=== PATIENT | male | born 1955 | race Caucasian/White ===

== ENCOUNTER → 2016-12-11 | Outpatient (CLI) | payer OTHER ==
[~2016-12-11] MED LIST: CARI-277 OR; DICL-37 OR; DICL75TA2 OR; GABA300C8 OR; LISI-275 OR; METF500T OR; SIMV-13 OR; TADA20TA OR
== END ==
LOC: RT 19:33
PROVIDERS: ATTEND Internal Medicine Pulmonary Disease
DX: G47.9 Sleep disorder, unspecified (principal)

== ENCOUNTER → 2017-01-03 | Outpatient (CLI) | payer OTHER ==
[~2017-01-03] MED LIST changes: +ALBUTEROL SULF 2.5 MG/0.5ML(0.5%) NEB SOLN ONE
[2017-01-03 09:50] LABS: Allen Test Yes; Base Excess 1.6 mmol/L (-2.0-2.0); Blood 02Sat 86.6 % (96-100); Blood COHb 0.3 % (0.5-1.5); Blood MetHb 0.2 % (0.0-1.5); HCO3 27.3 mmol/L (22-26.0); HHb 13.3 % (0.0-5.0); MODE ROOM AIR; O2Hb 86.2 % (94.0-97.0); PCO2(T) 45.7 mmHg (35.0-45.0); Sample Type Arterial
== END | disposition home or self-care (01) ==
LOC: RT 08:55
PROVIDERS: ATTEND Internal Medicine Pulmonary Disease
DX: J44.9 Chronic obstructive pulmonary disease, unspecified (principal)
CPT/HCPCS: 36600; 82805; 94060; 94640

== ENCOUNTER 2017-03-16 22:37 | Emergency (ER) | payer OTHER ==
[~2017-03-16] VITALS: Ht 182.9 cm; Wt 117.9 kg
[~2017-03-16 22:37] MED LIST changes: -ALBUTEROL SULF 2.5 MG/0.5ML(0.5%) NEB SOLN ONE; +GABA-497 OR; -GABA300C8 OR
[2017-03-16 23:43] LABS: Basophils # (auto) 0.1 uL; Basophils % (auto) 1.5 % (0.0-2.0); Eosinophils # (auto) 0.2 uL; Eosinophils % (auto) 2.7 % (0.0-7.0); Hematocrit 50.6 % (41.0-53.0); Hemoglobin 16.5 g/dL (13.5-17.5); Lymphocytes # (auto) 1.4 uL; Lymphocytes % (auto) 21.5 % (10.0-50.0); Mean Corpuscular Hemoglobin 31.8 pg (28.0-32.0); Mean Corpuscular Hgb Conc. 32.5 g/dL (32.0-36.0); Mean Corpuscular Volume 97.7 fL (80.0-100.0); Mean Platelet Volume 7.6 fL (7.4-10.4); Monocytes # (auto) 0.7 uL; Monocytes % (auto) 10.8 % (0.0-12.0); Neutrophils # (auto) 3.9 uL; Neutrophils % (auto) 63.5 % (37.0-80.0); Platelet Count (auto) 238 10^3/uL (140-450); Red Cell Distribution Width 14.5 % (11.6-16.0); SUSPECT SEE PRINTOUT; White Blood Cell 6.3 10^3/uL (4.4-10.8)
[2017-03-17 00:06] LABS: Albumin 2.7 g/dL (3.4-5.0); BUN/Creatinine Ratio 18.1; Calcium 8.6 mg/dL (8.5-10.1); Potassium 4.6 mmol/L (3.5-5.1)
[2017-03-17 00:08] LABS: Bilirubin, Total 0.4 mg/dL (0.2-1.0); Total Protein 6.9 g/dL (6.4-8.2)
[2017-03-17] MEDS ORDERED: KETOROLAC TROMETH 60MG/2ML VIAL IM ONE (03:15)
[2017-03-17] MEDS ORDERED: HYDROcodone-ACET 10/325MG TAB PO ONE (03:30)
[2017-03-17 03:57] LABS: INR 1.59 (0.9-1.15)
[2017-03-17 04:23] LABS: Prothrombin Time 17.4 sec (9.37-12.3)
[2017-03-17 07:44] VITALS: BP 153/115
== END 2017-03-17 08:25 | disposition home or self-care (01) ==
LOC: EDBD 22:37 → ER 22:37
DX: S80.12XA Contusion of left lower leg, initial encounter (principal); I73.9 Peripheral vascular disease, unspecified; I11.0 Hypertensive heart disease with heart failure; I50.9 Heart failure, unspecified; J44.9 Chronic obstructive pulmonary disease, unspecified; E11.9 Type 2 diabetes mellitus without complications; Z79.899 Other long term (current) drug therapy; W01.0XXA Fall on same level from slipping, tripping and stumbling without subsequent striking against object, initial encounter; Y93.89 Activity, other specified; Y99.8 Other external cause status; Y92.89 Other specified places as the place of occurrence of the external cause
CPT/HCPCS: 36415; 73590; 80053; 85025; 85610; 85730; 93970

== ENCOUNTER → 2017-05-09 | Outpatient (CLI) | payer OTHER | END | disposition home or self-care (01) | LOC: LAB 15:16 | PROVIDERS: ATTEND Family Medicine | DX: R19.5 Other fecal abnormalities (principal) | CPT/HCPCS: 82270 ==

== ENCOUNTER → 2017-08-02 | Outpatient (CLI) | payer OTHER ==
[~2017-08-02] MED LIST changes: -GABA-497 OR; +GABA300C10 OR
== END | disposition home or self-care (01) ==
LOC: XYW 08:14
PROVIDERS: ATTEND Internal Medicine Pulmonary Disease
DX: J96.11 Chronic respiratory failure with hypoxia (principal); I26.99 Other pulmonary embolism without acute cor pulmonale; I10 Essential (primary) hypertension
CPT/HCPCS: 93306

== ENCOUNTER → 2018-05-14 | Outpatient (CLI) | payer OTHER ==
[~2018-05-14] MED LIST changes: +FURO20TA3 PO; +GLIP-115 PO; +POTA10TA51 PO; +WARF1TAB PO
[2018-05-14 12:48] LABS: Basophils # (auto) 0 uL; Basophils % (auto) 0.6 % (0.0-2.0); Eosinophils # (auto) 0.1 uL; Eosinophils % (auto) 1.7 % (0.0-7.0); Hemoglobin 18.3 g/dL (13.5-17.5); Lymphocytes # (auto) 1.1 uL; Lymphocytes % (auto) 14.9 % (10.0-50.0); Mean Corpuscular Hemoglobin 32.5 pg (28.0-32.0); Mean Corpuscular Hgb Conc. 32.1 g/dL (32.0-36.0); Mean Corpuscular Volume 101.2 fL (80.0-100.0); Monocytes # (auto) 0.5 uL; Monocytes % (auto) 7.2 % (0.0-12.0); Neutrophils # (auto) 5.4 uL; Neutrophils % (auto) 75.6 % (37.0-80.0); Platelet Count (auto) 208 10^3/uL (140-450); Red Blood Cells 5.65 10^6/uL (4.5-5.90); Red Cell Distribution Width 16.4 % (11.8-14.3); White Blood Cell 7.1 10^3/uL (4.4-10.8)
[2018-05-14 12:49] LABS: Hematocrit 57.1 % (41.0-53.0)
[2018-05-14 12:54] LABS: Urine Bacteria NONE SEEN /hpf (None Seen); Urine Blood TRACE /uL (Negative); Urine Specific Gravity 1.016 (1.001-1.035); Urine WBC <1 /hpf (0 - 3)
[2018-05-14 14:03] LABS: Albumin 2.9 g/dL (3.4-5.0); Bilirubin, Total 0.6 mg/dL (0.2-1.0); Calcium 8.9 mg/dL (8.5-10.1); Potassium 5.3 mmol/L (3.5-5.1); Total Protein 7.5 g/dL (6.4-8.2)
[2018-05-14 14:15] LABS: BUN/Creatinine Ratio 18.2
== END | disposition home or self-care (01) ==
LOC: LAB 11:24
PROVIDERS: ATTEND Nurse Practitioner
DX: E78.5 Hyperlipidemia, unspecified (principal); E55.9 Vitamin D deficiency, unspecified; J44.9 Chronic obstructive pulmonary disease, unspecified; F41.9 Anxiety disorder, unspecified
CPT/HCPCS: 36415; 80053; 80061; 81001; 82306; 83036; 84153; 84443; 85025

== ENCOUNTER 2018-05-15 12:47 | Inpatient (IN) | payer OTHER ==
[~2018-05-15] VITALS: Ht 180.3 cm; Wt 106.6 kg
[2018-05-15] VITALS (8 sets, daily range): BP systolic 109–151; BP diastolic 71–111
[~2018-05-15 12:47] MED LIST changes: -FURO20TA3 PO; -GLIP-115 PO; -POTA10TA51 PO; -WARF1TAB PO
[2018-05-15 13:25] LABS: Basophils # (auto) 0 uL; Eosinophils # (auto) 0.1 uL; Lymphocytes # (auto) 0.9 uL; Lymphocytes % (auto) 13.4 % (10.0-50.0); Monocytes # (auto) 0.5 uL
[2018-05-15 13:27] LABS: Basophils % (auto) 0.3 % (0.0-2.0); Eosinophils % (auto) 1.9 % (0.0-7.0); Hematocrit 55.5 % (41.0-53.0); Mean Corpuscular Hemoglobin 32.8 pg (28.0-32.0); Mean Corpuscular Hgb Conc. 32.5 g/dL (32.0-36.0); Mean Corpuscular Volume 100.7 fL (80.0-100.0); Monocytes % (auto) 7.5 % (0.0-12.0); Neutrophils # (auto) 5.3 uL; Neutrophils % (auto) 76.9 % (37.0-80.0); Platelet Count (auto) 189 10^3/uL (140-450); Red Blood Cells 5.51 10^6/uL (4.5-5.90); Red Cell Distribution Width 16.1 % (11.8-14.3); White Blood Cell 6.8 10^3/uL (4.4-10.8)
[2018-05-15] MEDS ORDERED: GLIP-115 PO (13:28)
[2018-05-15] MEDS ORDERED: POTA10TA51 PO (13:28)
[2018-05-15] MEDS ORDERED: WARF1TAB PO (13:28)
[2018-05-15] MEDS ORDERED: FURO20TA3 PO (13:28)
[2018-05-15 13:43] LABS: INR 1.92 (0.9-1.15); Partial Thromboplastin Time 33.5 sec (23.78-33.04); Prothrombin Time 19.8 sec (9.27-12.13)
[2018-05-15 14:06] LABS: Albumin 2.5 g/dL (3.4-5.0); BUN/Creatinine Ratio 13.8; Bilirubin, Total 0.7 mg/dL (0.2-1.0); Calcium 8.5 mg/dL (8.5-10.1); Potassium 5.1 mmol/L (3.5-5.1)
[2018-05-15] MEDS ORDERED: ETOMIDATE (2MG/ML) 20ML VIAL IV ONE ×2 (14:17→14:45)
[2018-05-15] MEDS ORDERED: SUCCINYLCHOLINE CHLORIDE 20 MG/ML 10ML VIAL IV ONE ×2 (14:18→14:45)
[2018-05-15] MEDS ORDERED: PROPOFOL 100 ML IV ONE (14:25)
[2018-05-15 14:31] LABS: Lactic Acid w/Reflex 2.1 mmol/L (0.4-2.0)
[2018-05-15] MEDS ORDERED: PROPOFOL 100 ML IV SCH (14:35)
[2018-05-15] MEDS ORDERED: MIDAZOLAM DRIP 50 mg/50mL 50 ML IV SCH (15:08)
[2018-05-15] MEDS ORDERED: NOREPINEPHRINE 8 MG/250ML KIT 250 ML IV ONE (15:27)
[2018-05-15] MEDS ORDERED: NOREPINEPHRINE 8 MG/250ML KIT 250 ML IV SCH (15:35)
[2018-05-15] MEDS ORDERED: cefTRIAXone 1GM/10ml IVPUSH 10 ML IV ONE (16:00)
[2018-05-15] MEDS ORDERED: NITROGLYCERIN 0.4 MG SL TAB SL PRN (16:00)
[2018-05-15] MEDS ORDERED: SODIUM CHLORIDE 0.9% 250 ML IV ONE ×2 (16:00)
[2018-05-15] MEDS ORDERED: DEXTROSE (50%) 50ML SYRG IV PRN (16:00)
[2018-05-15] MEDS ORDERED: MORPHINE SULFATE 4 MG/ML SYR/VIAL IV PRN (16:00)
[2018-05-15] MEDS ORDERED: AZITHROMYCIN 500MG/ 250ML 250 ML IV ONE (16:00)
[2018-05-15] MEDS: NOREPINEPHRINE 8 MG/250ML KIT 250 ML IV SCH (16:06)
[2018-05-15] MEDS: PROPOFOL 100 ML IV SCH ×3 (16:32→23:30)
[2018-05-15] MEDS: fentaNYL Drip 2500mCg/250mlNS 250 ML IV SCH (16:32)
[2018-05-15] MEDS: MIDAZOLAM DRIP 50 mg/50mL 50 ML IV SCH ×2 (16:32→22:15)
[2018-05-15] MEDS: InsuLIN REG 1unit/0.01ml Soln (100units/ml) SC SCH (17:43)
[2018-05-15] MEDS: ACCU-CHEK COMFORT CURVE STRIP VI SCH (17:43)
[2018-05-15] MEDS: IPRATROPIUM BROM 0.5 MG/2.5ML INH SOL NEB SCH (18:10)
[2018-05-15] MEDS: ALBUTEROL SULF 2.5 MG/0.5ML(0.5%) NEB SOLN NEB SCH (18:10)
[2018-05-15] MEDS: ENOXAPARIN SOD 150 MG/1 ML SYRINGE SC SCH (22:00)
[2018-05-16] VITALS (70 sets, daily range): BP systolic 89–151; BP diastolic 56–105
[2018-05-16] MEDS: IPRATROPIUM BROM 0.5 MG/2.5ML INH SOL NEB SCH ×4 (00:08→19:23)
[2018-05-16] MEDS: ALBUTEROL SULF 2.5 MG/0.5ML(0.5%) NEB SOLN NEB SCH ×4 (00:08→19:24)
[2018-05-16] MEDS: MIDAZOLAM DRIP 50 mg/50mL 50 ML IV SCH ×4 (01:19→20:48)
[2018-05-16 04:06] LABS: Eosinophils # (auto) 0.2 uL; Monocytes # (auto) 0.8 uL; Nucleated Red Blood Cells % 0.1 %
[2018-05-16 04:09] LABS: Basophils # (auto) 0.1 uL; Basophils % (auto) 0.8 % (0.0-2.0); Eosinophils % (auto) 1.9 % (0.0-7.0); Hematocrit 54.1 % (41.0-53.0); Hemoglobin 17.5 g/dL (13.5-17.5); Lymphocytes # (auto) 1.6 uL; Lymphocytes % (auto) 18.6 % (10.0-50.0); Mean Corpuscular Hemoglobin 32.3 pg (28.0-32.0); Mean Corpuscular Hgb Conc. 32.4 g/dL (32.0-36.0); Mean Corpuscular Volume 99.8 fL (80.0-100.0); Monocytes % (auto) 9.9 % (0.0-12.0); Neutrophils # (auto) 5.8 uL; Neutrophils % (auto) 68.8 % (37.0-80.0); Platelet Count (auto) 208 10^3/uL (140-450); Red Blood Cells 5.42 10^6/uL (4.5-5.90); Red Cell Distribution Width 15.4 % (11.8-14.3); White Blood Cell 8.5 10^3/uL (4.4-10.8)
[2018-05-16 04:28] LABS: Albumin 2.3 g/dL (3.4-5.0); Calcium 8.3 mg/dL (8.5-10.1); Potassium 4.8 mmol/L (3.5-5.1)
[2018-05-16 04:30] LABS: BUN/Creatinine Ratio 15.2
[2018-05-16 04:33] LABS: Bilirubin, Total 0.9 mg/dL (0.2-1.0); Total Protein 6.2 g/dL (6.4-8.2)
[2018-05-16] MEDS: NOREPINEPHRINE 8 MG/250ML KIT 250 ML IV SCH (06:03)
[2018-05-16] MEDS: ACCU-CHEK COMFORT CURVE STRIP VI SCH ×4 (06:03→18:34)
[2018-05-16] MEDS: InsuLIN REG 1unit/0.01ml Soln (100units/ml) SC SCH ×4 (06:04→18:34)
[2018-05-16 08:30] LABS: Urine Bacteria FEW /hpf (None Seen); Urine Blood 2+ /uL (Negative); Urine Hyaline Cast FEW /lpf (0 - 2); Urine Mucus FEW (None Seen); Urine Specific Gravity 1.013 (1.001-1.035); Urine WBC 44 /hpf (0 - 3)
[2018-05-16] MEDS ORDERED: OPTISON 3ml Vial for INJ IV ONE (09:21)
[2018-05-16] MEDS: cefTRIAXone 1GM/10ml IVPUSH 10 ML IV SCH (10:14)
[2018-05-16] MEDS: AZITHROMYCIN 500MG/ 250ML 250 ML IV SCH (10:14)
[2018-05-16] MEDS: ENOXAPARIN SOD 150 MG/1 ML SYRINGE SC SCH ×2 (10:14→22:34)
[2018-05-16] MEDS: PANTOPRAZOLE 40 MG/10 ML VIAL IV SCH (10:15)
[2018-05-16 13:59] LABS: Alcohol, Urine < 3.0 mg/dL (0-5); Amphetamine Screen, Urine NEGATIVE (NEGATIVE); Barbiturate Scree,Urine NEGATIVE (NEGATIVE); Benzodiazephine Screen, Urine POSITIVE (NEGATIVE); Cannabinoid Screen, Urine NEGATIVE (NEGATIVE); Cocaine Screen, Urine NEGATIVE (NEGATIVE); Opiate Scree,Urine NEGATIVE (NEGATIVE); Phencyclidine Screen, Urine NEGATIVE (NEGATIVE)
[2018-05-16] MEDS: PROPOFOL 100 ML IV SCH ×2 (15:35→23:05)
[2018-05-16] MEDS: fentaNYL Drip 2500mCg/250mlNS 250 ML IV SCH (16:00)
[2018-05-17] VITALS (60 sets, daily range): BP systolic 63–133; BP diastolic 58–95
[2018-05-17] MEDS: MIDAZOLAM DRIP 50 mg/50mL 50 ML IV SCH ×3 (00:13→22:27)
[2018-05-17] MEDS: ACCU-CHEK COMFORT CURVE STRIP VI SCH ×4 (00:13→18:29)
[2018-05-17] MEDS: IPRATROPIUM BROM 0.5 MG/2.5ML INH SOL NEB SCH ×5 (00:19→23:57)
[2018-05-17] MEDS: ALBUTEROL SULF 2.5 MG/0.5ML(0.5%) NEB SOLN NEB SCH ×5 (00:19→23:56)
[2018-05-17 04:05] LABS: Basophils # (auto) 0 uL; Basophils % (auto) 0.5 % (0.0-2.0); Eosinophils # (auto) 0.1 uL; Eosinophils % (auto) 1.9 % (0.0-7.0); Hemoglobin 17.4 g/dL (13.5-17.5); Lymphocytes % (auto) 13.3 % (10.0-50.0); Mean Corpuscular Hemoglobin 33.1 pg (28.0-32.0); Mean Corpuscular Hgb Conc. 33.4 g/dL (32.0-36.0); Mean Corpuscular Volume 99.2 fL (80.0-100.0); Monocytes # (auto) 0.9 uL; Monocytes % (auto) 11.2 % (0.0-12.0); Neutrophils # (auto) 5.6 uL; Neutrophils % (auto) 73.1 % (37.0-80.0); Platelet Count (auto) 178 10^3/uL (140-450); Red Blood Cells 5.24 10^6/uL (4.5-5.90); Red Cell Distribution Width 15.8 % (11.8-14.3); White Blood Cell 7.7 10^3/uL (4.4-10.8)
[2018-05-17 04:21] LABS: Calcium 8.8 mg/dL (8.5-10.1); Potassium 4.6 mmol/L (3.5-5.1)
[2018-05-17] MEDS: PROPOFOL 100 ML IV SCH ×2 (05:44→13:48)
[2018-05-17] MEDS: InsuLIN REG 1unit/0.01ml Soln (100units/ml) SC SCH ×4 (05:57→18:00)
[2018-05-17] MEDS: cefTRIAXone 1GM/10ml IVPUSH 10 ML IV SCH (09:45)
[2018-05-17] MEDS: ENOXAPARIN SOD 150 MG/1 ML SYRINGE SC SCH ×2 (10:01→22:27)
[2018-05-17] MEDS: PANTOPRAZOLE 40 MG/10 ML VIAL IV SCH (10:01)
[2018-05-17] MEDS: AZITHROMYCIN 500MG/ 250ML 250 ML IV SCH (10:01)
[2018-05-17] MEDS ORDERED: POTASSIUM EFFERVESENT TAB 25 MEQ GT ONE (11:00)
[2018-05-17] MEDS ORDERED: FUROSEMIDE 40 MG/4 ML VIAL IV ONE (11:00)
[2018-05-17] MEDS: NOREPINEPHRINE 8 MG/250ML KIT 250 ML IV SCH (12:51)
[2018-05-17] MEDS: fentaNYL Drip 2500mCg/250mlNS 250 ML IV SCH (12:51)
[2018-05-18] VITALS (106 sets, daily range): BP systolic 90–146; BP diastolic 60–107
[2018-05-18] MEDS: InsuLIN REG 1unit/0.01ml Soln (100units/ml) SC SCH ×4 (00:22→18:00)
[2018-05-18] MEDS: ACCU-CHEK COMFORT CURVE STRIP VI SCH ×4 (00:22→18:06)
[2018-05-18] MEDS: PROPOFOL 100 ML IV SCH ×5 (03:49→19:52)
[2018-05-18 04:44] LABS: Calcium 8.6 mg/dL (8.5-10.1); Magnesium 2.3 mg/dL (1.6-2.6); Potassium 4.5 mmol/L (3.5-5.1)
[2018-05-18] MEDS: ALBUTEROL SULF 2.5 MG/0.5ML(0.5%) NEB SOLN NEB SCH ×3 (05:41→19:35)
[2018-05-18] MEDS: IPRATROPIUM BROM 0.5 MG/2.5ML INH SOL NEB SCH ×3 (05:41→19:35)
[2018-05-18] MEDS: MIDAZOLAM DRIP 50 mg/50mL 50 ML IV SCH ×3 (06:13→17:09)
[2018-05-18] MEDS: cefTRIAXone 1GM/10ml IVPUSH 10 ML IV SCH (08:46)
[2018-05-18] MEDS: POTASSIUM EFFERVESENT TAB 25 MEQ GT SCH (10:08)
[2018-05-18] MEDS: FUROSEMIDE 40 MG/4 ML VIAL IV SCH (10:08)
[2018-05-18] MEDS: PANTOPRAZOLE 40 MG/10 ML VIAL IV SCH (10:08)
[2018-05-18] MEDS: ENOXAPARIN SOD 150 MG/1 ML SYRINGE SC SCH ×2 (10:09→21:48)
[2018-05-18] MEDS: AZITHROMYCIN 500MG/ 250ML 250 ML IV SCH (10:09)
[2018-05-18] MEDS ORDERED: MORPHINE SULFATE 4 MG/ML SYR/VIAL IV PRN (13:00)
[2018-05-18] MEDS: fentaNYL Drip 2500mCg/250mlNS 250 ML IV SCH (13:12)
[2018-05-19] VITALS (103 sets, daily range): BP systolic 98–145; BP diastolic 59–103
[2018-05-19] MEDS: ACCU-CHEK COMFORT CURVE STRIP VI SCH ×3 (00:02→12:14)
[2018-05-19] MEDS: InsuLIN REG 1unit/0.01ml Soln (100units/ml) SC SCH ×3 (00:03→12:14)
[2018-05-19] MEDS: IPRATROPIUM BROM 0.5 MG/2.5ML INH SOL NEB SCH ×4 (00:24→19:01)
[2018-05-19] MEDS: ALBUTEROL SULF 2.5 MG/0.5ML(0.5%) NEB SOLN NEB SCH ×4 (00:24→19:01)
[2018-05-19] MEDS: PROPOFOL 100 ML IV SCH ×7 (02:35→23:48)
[2018-05-19] MEDS: MIDAZOLAM DRIP 50 mg/50mL 50 ML IV SCH ×3 (03:46→21:20)
[2018-05-19 04:08] LABS: Basophils # (auto) 0 uL; Basophils % (auto) 0.4 % (0.0-2.0); Eosinophils # (auto) 0.2 uL; Eosinophils % (auto) 2.5 % (0.0-7.0); Hematocrit 52.9 % (41.0-53.0); Hemoglobin 17.4 g/dL (13.5-17.5); Lymphocytes # (auto) 0.7 uL; Lymphocytes % (auto) 9.3 % (10.0-50.0); Mean Corpuscular Hemoglobin 32.5 pg (28.0-32.0); Mean Corpuscular Hgb Conc. 32.8 g/dL (32.0-36.0); Monocytes # (auto) 0.8 uL; Monocytes % (auto) 11.7 % (0.0-12.0); Neutrophils # (auto) 5.5 uL; Neutrophils % (auto) 76.1 % (37.0-80.0); Platelet Count (auto) 173 10^3/uL (140-450); Red Blood Cells 5.34 10^6/uL (4.5-5.90); Red Cell Distribution Width 15.9 % (11.8-14.3); White Blood Cell 7.3 10^3/uL (4.4-10.8)
[2018-05-19 04:28] LABS: INR 1.2 (0.9-1.15); Prothrombin Time 12.7 sec (9.27-12.13)
[2018-05-19 04:29] LABS: BUN/Creatinine Ratio 24.3; Potassium 4.6 mmol/L (3.5-5.1)
[2018-05-19] MEDS: cefTRIAXone 1GM/10ml IVPUSH 10 ML IV SCH (09:42)
[2018-05-19] MEDS: FUROSEMIDE 40 MG/4 ML VIAL IV SCH (10:31)
[2018-05-19] MEDS: PANTOPRAZOLE 40 MG/10 ML VIAL IV SCH (10:32)
[2018-05-19] MEDS: ENOXAPARIN SOD 150 MG/1 ML SYRINGE SC SCH ×2 (10:33→22:00)
[2018-05-19] MEDS: AZITHROMYCIN 500MG/ 250ML 250 ML IV SCH (10:34)
[2018-05-19 11:20] LABS: Hematocrit 53.9 % (41.0-53.0); Hemoglobin 17.9 g/dL (13.5-17.5)
[2018-05-19] MEDS: fentaNYL Drip 2500mCg/250mlNS 250 ML IV SCH (12:28)
[2018-05-19] MEDS: POTASSIUM EFFERVESENT TAB 25 MEQ GT SCH (14:01)
[2018-05-19 17:57] LABS: Hematocrit 52.7 % (41.0-53.0); Hemoglobin 17.5 g/dL (13.5-17.5)
[2018-05-19] MEDS: Glucerna 1.2 Cal 1Liter BOTTLE GT SCH (21:21)
[2018-05-19 23:22] LABS: Hematocrit 51.3 % (41.0-53.0); Hemoglobin 17.1 g/dL (13.5-17.5)
[2018-05-20] VITALS (104 sets, daily range): BP systolic 95–150; BP diastolic 54–111
[2018-05-20] MEDS: ALBUTEROL SULF 2.5 MG/0.5ML(0.5%) NEB SOLN NEB SCH ×4 (00:48→18:01)
[2018-05-20] MEDS: IPRATROPIUM BROM 0.5 MG/2.5ML INH SOL NEB SCH ×4 (00:48→18:01)
[2018-05-20 04:06] LABS: Basophils # (auto) 0 uL; Basophils % (auto) 0.4 % (0.0-2.0); Eosinophils # (auto) 0.3 uL; Eosinophils % (auto) 4.2 % (0.0-7.0); Hematocrit 51.5 % (41.0-53.0); Hemoglobin 16.7 g/dL (13.5-17.5); Lymphocytes # (auto) 0.8 uL; Lymphocytes % (auto) 12.1 % (10.0-50.0); Mean Corpuscular Hemoglobin 32.3 pg (28.0-32.0); Mean Corpuscular Hgb Conc. 32.5 g/dL (32.0-36.0); Mean Corpuscular Volume 99.4 fL (80.0-100.0); Monocytes # (auto) 0.7 uL; Monocytes % (auto) 11.1 % (0.0-12.0); Neutrophils # (auto) 4.8 uL; Neutrophils % (auto) 72.2 % (37.0-80.0); Nucleated Red Blood Cells % 0.1 %; Platelet Count (auto) 173 10^3/uL (140-450); Red Blood Cells 5.19 10^6/uL (4.5-5.90); Red Cell Distribution Width 15.7 % (11.8-14.3); White Blood Cell 6.6 10^3/uL (4.4-10.8)
[2018-05-20] MEDS: PROPOFOL 100 ML IV SCH ×4 (04:13→20:26)
[2018-05-20 04:24] LABS: Albumin 2.4 g/dL (3.4-5.0); BUN/Creatinine Ratio 31.4; Bilirubin, Total 0.6 mg/dL (0.2-1.0); Potassium 4.7 mmol/L (3.5-5.1); Total Protein 6.8 g/dL (6.4-8.2)
[2018-05-20] MEDS: InsuLIN REG 1unit/0.01ml Soln (100units/ml) SC SCH ×4 (06:21→18:00)
[2018-05-20] MEDS: ACCU-CHEK COMFORT CURVE STRIP VI SCH ×4 (06:21→18:01)
[2018-05-20] MEDS: MIDAZOLAM DRIP 50 mg/50mL 50 ML IV SCH ×3 (06:37→20:25)
[2018-05-20] MEDS: ENOXAPARIN SOD 150 MG/1 ML SYRINGE SC SCH ×2 (10:00→21:37)
[2018-05-20] MEDS: cefTRIAXone 1GM/10ml IVPUSH 10 ML IV SCH (10:42)
[2018-05-20] MEDS: PANTOPRAZOLE 40 MG/10 ML VIAL IV SCH (10:43)
[2018-05-20] MEDS: AZITHROMYCIN 500MG/ 250ML 250 ML IV SCH (10:45)
[2018-05-20] MEDS: SODIUM CHLORIDE 0.9% 1,000 ML IV SCH ×2 (12:25→19:30)
[2018-05-20] MEDS: fentaNYL Drip 2500mCg/250mlNS 250 ML IV SCH (12:26)
[2018-05-20 12:43] LABS: Urine WBC None Seen /hpf (0 - 3)
[2018-05-20 13:13] LABS: Urine Amorphous Crystal FEW /hpf (None Seen); Urine Bacteria NONE SEEN /hpf (None Seen); Urine Blood 3+ /uL (Negative); Urine Specific Gravity 1.022 (1.001-1.035)
[2018-05-21] VITALS (103 sets, daily range): BP systolic 96–160; BP diastolic 57–116
[2018-05-21] MEDS: ALBUTEROL SULF 2.5 MG/0.5ML(0.5%) NEB SOLN NEB SCH ×4 (00:52→18:38)
[2018-05-21] MEDS: IPRATROPIUM BROM 0.5 MG/2.5ML INH SOL NEB SCH ×4 (00:52→18:38)
[2018-05-21] MEDS: PROPOFOL 100 ML IV SCH ×5 (01:41→20:01)
[2018-05-21] MEDS: MIDAZOLAM DRIP 50 mg/50mL 50 ML IV SCH ×3 (02:53→20:01)
[2018-05-21 03:58] LABS: BUN/Creatinine Ratio 33.7; Calcium 8.7 mg/dL (8.5-10.1); Potassium 4.4 mmol/L (3.5-5.1)
[2018-05-21] MEDS: InsuLIN REG 1unit/0.01ml Soln (100units/ml) SC SCH ×4 (06:00→18:10)
[2018-05-21] MEDS: ACCU-CHEK COMFORT CURVE STRIP VI SCH ×4 (06:00→18:00)
[2018-05-21] MEDS: SODIUM CHLORIDE 0.9% 1,000 ML IV SCH (06:48)
[2018-05-21] MEDS: cefTRIAXone 1GM/10ml IVPUSH 10 ML IV SCH (09:05)
[2018-05-21] MEDS: PANTOPRAZOLE 40 MG/10 ML VIAL IV SCH (10:06)
[2018-05-21] MEDS: ENOXAPARIN SOD 150 MG/1 ML SYRINGE SC SCH ×2 (10:06→21:54)
[2018-05-21] MEDS: AZITHROMYCIN 500MG/ 250ML 250 ML IV SCH (10:06)
[2018-05-21] MEDS: fentaNYL Drip 2500mCg/250mlNS 250 ML IV SCH (13:12)
[2018-05-21] MEDS: PIPERACILLIN-TAZOB 3.375GM 100 ML IV SCH ×2 (15:06→21:54)
[2018-05-21] MEDS: Glucerna 1.2 Cal 1Liter BOTTLE GT SCH (20:02)
[2018-05-22] VITALS (103 sets, daily range): BP systolic 99–169; BP diastolic 57–104
[2018-05-22] MEDS: ACCU-CHEK COMFORT CURVE STRIP VI SCH ×4 (00:06→18:16)
[2018-05-22] MEDS: InsuLIN REG 1unit/0.01ml Soln (100units/ml) SC SCH ×4 (00:06→18:16)
[2018-05-22] MEDS: ALBUTEROL SULF 2.5 MG/0.5ML(0.5%) NEB SOLN NEB SCH ×4 (00:22→18:44)
[2018-05-22] MEDS: IPRATROPIUM BROM 0.5 MG/2.5ML INH SOL NEB SCH ×4 (00:22→18:44)
[2018-05-22] MEDS: PIPERACILLIN-TAZOB 3.375GM 100 ML IV SCH ×4 (03:29→20:11)
[2018-05-22 03:51] LABS: Basophils # (auto) 0 uL; Basophils % (auto) 0.6 % (0.0-2.0); Eosinophils # (auto) 0.3 uL; Eosinophils % (auto) 5.2 % (0.0-7.0); Hematocrit 47.2 % (41.0-53.0); Hemoglobin 15.5 g/dL (13.5-17.5); Lymphocytes # (auto) 0.9 uL; Lymphocytes % (auto) 13.6 % (10.0-50.0); Mean Corpuscular Hemoglobin 32.7 pg (28.0-32.0); Mean Corpuscular Hgb Conc. 32.8 g/dL (32.0-36.0); Mean Corpuscular Volume 99.7 fL (80.0-100.0); Monocytes # (auto) 0.7 uL; Monocytes % (auto) 10.6 % (0.0-12.0); Neutrophils # (auto) 4.7 uL; Nucleated Red Blood Cells % 0.3 %; Platelet Count (auto) 176 10^3/uL (140-450); Red Blood Cells 4.73 10^6/uL (4.5-5.90); Red Cell Distribution Width 15.3 % (11.8-14.3); White Blood Cell 6.7 10^3/uL (4.4-10.8)
[2018-05-22 04:11] LABS: BUN/Creatinine Ratio 31.1; Calcium 9.1 mg/dL (8.5-10.1); Potassium 4.3 mmol/L (3.5-5.1)
[2018-05-22] MEDS: PROPOFOL 100 ML IV SCH ×2 (06:40→20:08)
[2018-05-22] MEDS: Glucerna 1.2 Cal 1Liter BOTTLE GT SCH (06:40)
[2018-05-22] MEDS: ENOXAPARIN SOD 150 MG/1 ML SYRINGE SC SCH (10:00)
[2018-05-22] MEDS: PANTOPRAZOLE 40 MG/10 ML VIAL IV SCH (10:08)
[2018-05-22] MEDS: fentaNYL Drip 2500mCg/250mlNS 250 ML IV SCH (13:12)
[2018-05-22] MEDS ORDERED: FUROSEMIDE 40 MG/4 ML VIAL IV ONE (14:00)
[2018-05-22] MEDS ORDERED: FUROSEMIDE 40 MG/4 ML VIAL ONE (14:00)
[2018-05-22] MEDS ORDERED: POTASSIUM EFFERVESENT TAB 25 MEQ GT ONE (14:00)
[2018-05-22] MEDS: MIDAZOLAM DRIP 50 mg/50mL 50 ML IV SCH ×2 (16:00→20:09)
[2018-05-22] MEDS: ENOXAPARIN SOD 120 MG/0.8 ML SYRINGE SC SCH (22:00)
[2018-05-22] MEDS: ACETAMINOPHEN 650 mg PER 20 mL UD GT PRN (23:04)
[2018-05-23] VITALS (101 sets, daily range): BP systolic 92–169; BP diastolic 34–103
[2018-05-23] MEDS: ACCU-CHEK COMFORT CURVE STRIP VI SCH ×5 (00:05→23:32)
[2018-05-23] MEDS: InsuLIN REG 1unit/0.01ml Soln (100units/ml) SC SCH ×4 (00:05→17:48)
[2018-05-23] MEDS: ALBUTEROL SULF 2.5 MG/0.5ML(0.5%) NEB SOLN NEB SCH ×4 (00:41→18:08)
[2018-05-23] MEDS: IPRATROPIUM BROM 0.5 MG/2.5ML INH SOL NEB SCH ×4 (00:41→18:08)
[2018-05-23] MEDS: Glucerna 1.2 Cal 1Liter BOTTLE GT SCH (02:40)
[2018-05-23] MEDS: PIPERACILLIN-TAZOB 3.375GM 100 ML IV SCH ×4 (03:06→22:05)
[2018-05-23 04:02] LABS: BUN/Creatinine Ratio 29.7; Calcium 9.5 mg/dL (8.5-10.1); Potassium 4.3 mmol/L (3.5-5.1)
[2018-05-23] MEDS: PROPOFOL 100 ML IV SCH ×4 (04:47→16:25)
[2018-05-23] MEDS: MIDAZOLAM DRIP 50 mg/50mL 50 ML IV SCH ×5 (04:48→23:25)
[2018-05-23] MEDS ORDERED: LIDOCAINE 1% (LOCAL ANESTH.) PF 5ml SDV ID ONE (09:30)
[2018-05-23] MEDS: ENOXAPARIN SOD 120 MG/0.8 ML SYRINGE SC SCH ×2 (09:53→22:08)
[2018-05-23] MEDS: ACETAMINOPHEN 650 mg PER 20 mL UD GT PRN (09:53)
[2018-05-23] MEDS: PANTOPRAZOLE 40 MG/10 ML VIAL IV SCH (09:53)
[2018-05-23] MEDS: SODIUM CHLOR 0.9% PF (SALINE LOCK) 10ML VIAL/SYR IV SCH ×2 (09:54→22:08)
[2018-05-23] MEDS ORDERED: ENOXAPARIN SOD 120 MG/0.8 ML SYRINGE SC SCH (10:00)
[2018-05-23] MEDS ORDERED: MORPHINE SULFATE 4 MG/ML SYR/VIAL IV PRN (13:30)
[2018-05-23] MEDS ORDERED: FUROSEMIDE 40 MG/4 ML VIAL IV ONE (13:30)
[2018-05-23] MEDS ORDERED: VANCOMYCIN PER PHARMACY 0 MG IV SCH (13:30)
[2018-05-23] MEDS ORDERED: POTASSIUM EFFERVESENT TAB 25 MEQ GT ONE (13:30)
[2018-05-23] MEDS ORDERED: Glucerna 1.2 Cal 1Liter BOTTLE GT SCH (14:00)
[2018-05-23] MEDS: VANCOMYCIN 1,250 MG in D5W 5% 250 ML IV SCH (14:27)
[2018-05-23] MEDS: LACTULOSE 20Gm/30ML SOLN PO SCH ×2 (14:32→23:32)
[2018-05-24] VITALS (107 sets, daily range): BP systolic 91–153; BP diastolic 48–107
[2018-05-24] MEDS: ACETAMINOPHEN 650 mg PER 20 mL UD GT PRN (00:01)
[2018-05-24] MEDS: InsuLIN REG 1unit/0.01ml Soln (100units/ml) SC SCH ×4 (00:01→17:59)
[2018-05-24] MEDS: ALBUTEROL SULF 2.5 MG/0.5ML(0.5%) NEB SOLN NEB SCH ×4 (00:17→18:39)
[2018-05-24] MEDS: IPRATROPIUM BROM 0.5 MG/2.5ML INH SOL NEB SCH ×4 (00:17→18:39)
[2018-05-24] MEDS: PROPOFOL 100 ML IV SCH ×2 (02:00→08:16)
[2018-05-24] MEDS: VANCOMYCIN 1,250 MG in D5W 5% 250 ML IV SCH ×2 (02:14→14:30)
[2018-05-24] MEDS: PIPERACILLIN-TAZOB 3.375GM 100 ML IV SCH ×4 (02:55→20:33)
[2018-05-24 04:09] LABS: Basophils # (auto) 0 uL; Basophils % (auto) 0.4 % (0.0-2.0); Eosinophils # (auto) 0.2 uL; Hematocrit 48.9 % (41.0-53.0); Hemoglobin 16.4 g/dL (13.5-17.5); Lymphocytes # (auto) 0.9 uL; Lymphocytes % (auto) 11.7 % (10.0-50.0); Mean Corpuscular Hemoglobin 33.6 pg (28.0-32.0); Mean Corpuscular Hgb Conc. 33.5 g/dL (32.0-36.0); Mean Corpuscular Volume 100.5 fL (80.0-100.0); Monocytes # (auto) 0.8 uL; Monocytes % (auto) 10.1 % (0.0-12.0); Neutrophils # (auto) 5.9 uL; Neutrophils % (auto) 74.8 % (37.0-80.0); Nucleated Red Blood Cells % 0.3 %; Red Blood Cells 4.87 10^6/uL (4.5-5.90); Red Cell Distribution Width 15.6 % (11.8-14.3); White Blood Cell 7.9 10^3/uL (4.4-10.8)
[2018-05-24 04:10] LABS: Platelet Count (auto) 161 10^3/uL (140-450); Potassium 5.3 mmol/L (3.5-5.1)
[2018-05-24 04:15] LABS: BUN/Creatinine Ratio 27.1; Calcium 9.3 mg/dL (8.5-10.1)
[2018-05-24 04:19] LABS: Bilirubin, Total 1.8 mg/dL (0.2-1.0); Total Protein 7.8 g/dL (6.4-8.2)
[2018-05-24 04:25] LABS: Albumin 2.2 g/dL (3.4-5.0)
[2018-05-24] MEDS: MIDAZOLAM DRIP 50 mg/50mL 50 ML IV SCH ×5 (04:40→20:33)
[2018-05-24] MEDS: LACTULOSE 20Gm/30ML SOLN PO SCH ×3 (06:44→17:58)
[2018-05-24] MEDS: ACCU-CHEK COMFORT CURVE STRIP VI SCH ×3 (06:44→17:55)
[2018-05-24] MEDS: ENOXAPARIN SOD 120 MG/0.8 ML SYRINGE SC SCH ×2 (09:34→22:29)
[2018-05-24] MEDS: PANTOPRAZOLE 40 MG/10 ML VIAL IV SCH (09:34)
[2018-05-24] MEDS: SODIUM CHLOR 0.9% PF (SALINE LOCK) 10ML VIAL/SYR IV SCH ×2 (09:35→22:29)
[2018-05-24] MEDS ORDERED: fentaNYL Drip 2500mCg/250mlNS 250 ML IV SCH (13:12)
[2018-05-24] MEDS: fentaNYL Drip 2500mCg/250mlNS 250 ML IV SCH (15:38)
[2018-05-25] VITALS (102 sets, daily range): BP systolic 77–140; BP diastolic 34–106
[2018-05-25] MEDS: ALBUTEROL SULF 2.5 MG/0.5ML(0.5%) NEB SOLN NEB SCH ×4 (00:16→18:22)
[2018-05-25] MEDS: IPRATROPIUM BROM 0.5 MG/2.5ML INH SOL NEB SCH ×4 (00:16→18:22)
[2018-05-25] MEDS: ACCU-CHEK COMFORT CURVE STRIP VI SCH ×5 (00:17→23:56)
[2018-05-25] MEDS: LACTULOSE 20Gm/30ML SOLN PO SCH ×5 (00:17→23:55)
[2018-05-25] MEDS: InsuLIN REG 1unit/0.01ml Soln (100units/ml) SC SCH ×5 (00:24→23:56)
[2018-05-25] MEDS: MIDAZOLAM DRIP 50 mg/50mL 50 ML IV SCH ×5 (00:55→22:49)
[2018-05-25 01:33] LABS: Calcium 9.1 mg/dL (8.5-10.1); Potassium 5.2 mmol/L (3.5-5.1)
[2018-05-25 01:36] LABS: Bilirubin, Total 1.4 mg/dL (0.2-1.0); Total Protein 7.5 g/dL (6.4-8.2)
[2018-05-25] MEDS: VANCOMYCIN 1,250 MG in D5W 5% 250 ML IV SCH ×2 (02:24→13:14)
[2018-05-25] MEDS: PIPERACILLIN-TAZOB 3.375GM 100 ML IV SCH ×4 (02:27→21:30)
[2018-05-25 04:17] LABS: Basophils # (auto) 0 uL; Basophils % (auto) 0.3 % (0.0-2.0); Eosinophils # (auto) 0.3 uL; Eosinophils % (auto) 4.2 % (0.0-7.0); Hematocrit 45.3 % (41.0-53.0); Hemoglobin 15.2 g/dL (13.5-17.5); Lymphocytes # (auto) 0.8 uL; Lymphocytes % (auto) 12.2 % (10.0-50.0); Mean Corpuscular Hemoglobin 33.7 pg (28.0-32.0); Mean Corpuscular Hgb Conc. 33.5 g/dL (32.0-36.0); Mean Corpuscular Volume 100.4 fL (80.0-100.0); Monocytes # (auto) 0.7 uL; Monocytes % (auto) 10.8 % (0.0-12.0); Neutrophils # (auto) 4.8 uL; Neutrophils % (auto) 72.5 % (37.0-80.0); Nucleated Red Blood Cells % 0.3 %; Platelet Count (auto) 157 10^3/uL (140-450); Red Blood Cells 4.51 10^6/uL (4.5-5.90); White Blood Cell 6.6 10^3/uL (4.4-10.8)
[2018-05-25 04:25] LABS: Potassium 4.8 mmol/L (3.5-5.1)
[2018-05-25 04:30] LABS: BUN/Creatinine Ratio 34.2; Calcium 9.2 mg/dL (8.5-10.1)
[2018-05-25 04:35] LABS: Bilirubin, Total 1.2 mg/dL (0.2-1.0); Total Protein 7.3 g/dL (6.4-8.2)
[2018-05-25] MEDS: PROPOFOL 100 ML IV SCH ×3 (08:57→22:17)
[2018-05-25] MEDS: ENOXAPARIN SOD 120 MG/0.8 ML SYRINGE SC SCH ×2 (10:02→22:16)
[2018-05-25] MEDS: PANTOPRAZOLE 40 MG/10 ML VIAL IV SCH (10:02)
[2018-05-25] MEDS: SODIUM CHLOR 0.9% PF (SALINE LOCK) 10ML VIAL/SYR IV SCH ×2 (10:03→22:17)
[2018-05-25] MEDS: ACETAMINOPHEN 650 mg PER 20 mL UD GT PRN (13:14)
[2018-05-25] MEDS ORDERED: NOREPINEPHRINE 8 MG/250ML KIT 250 ML IV ONE (13:28)
[2018-05-25] MEDS: NOREPINEPHRINE 8 MG/250ML KIT 250 ML IV SCH (13:30)
[2018-05-25] MEDS: fentaNYL Drip 2500mCg/250mlNS 250 ML IV SCH (14:30)
[2018-05-25] MEDS ORDERED: FLUCONAZOLE 200MG/100ML 100 ML IV ONE (14:45)
[2018-05-25] MEDS ORDERED: BISACODYL 10 MG RECT SUPP PR ONE (14:45)
[2018-05-25] MEDS: LINEZOLID 600MG/300ML 300 ML IV SCH (22:15)
[2018-05-25] MEDS: METOCLOPRAMIDE HCL 5MG/ml INJ 2ml VIAL IV SCH (22:16)
[2018-05-26] VITALS (104 sets, daily range): BP systolic 86–119; BP diastolic 50–88
[2018-05-26] MEDS: ALBUTEROL SULF 2.5 MG/0.5ML(0.5%) NEB SOLN NEB SCH ×4 (00:21→18:44)
[2018-05-26] MEDS: IPRATROPIUM BROM 0.5 MG/2.5ML INH SOL NEB SCH ×4 (00:21→18:44)
[2018-05-26] MEDS: PIPERACILLIN-TAZOB 3.375GM 100 ML IV SCH ×4 (02:34→21:46)
[2018-05-26] MEDS: MIDAZOLAM DRIP 50 mg/50mL 50 ML IV SCH ×6 (02:48→22:56)
[2018-05-26] MEDS: PROPOFOL 100 ML IV SCH ×7 (02:48→23:16)
[2018-05-26 04:01] LABS: Basophils # (auto) 0.1 uL; Basophils % (auto) 0.8 % (0.0-2.0); Eosinophils # (auto) 0.4 uL; Eosinophils % (auto) 5.5 % (0.0-7.0); Hematocrit 44.2 % (41.0-53.0); Hemoglobin 14.8 g/dL (13.5-17.5); Lymphocytes # (auto) 0.9 uL; Mean Corpuscular Hemoglobin 33.7 pg (28.0-32.0); Mean Corpuscular Hgb Conc. 33.5 g/dL (32.0-36.0); Mean Corpuscular Volume 100.3 fL (80.0-100.0); Monocytes # (auto) 0.9 uL; Monocytes % (auto) 11.5 % (0.0-12.0); Neutrophils # (auto) 5.3 uL; Neutrophils % (auto) 70.2 % (37.0-80.0); Platelet Count (auto) 227 10^3/uL (140-450); Red Blood Cells 4.41 10^6/uL (4.5-5.90); Red Cell Distribution Width 14.6 % (11.8-14.3); White Blood Cell 7.6 10^3/uL (4.4-10.8)
[2018-05-26 04:11] LABS: BUN/Creatinine Ratio 35.9; Calcium 9.2 mg/dL (8.5-10.1); Potassium 4.4 mmol/L (3.5-5.1)
[2018-05-26] MEDS: LACTULOSE 20Gm/30ML SOLN PO SCH ×4 (05:14→23:23)
[2018-05-26] MEDS: ACCU-CHEK COMFORT CURVE STRIP VI SCH ×4 (05:15→23:31)
[2018-05-26] MEDS: InsuLIN REG 1unit/0.01ml Soln (100units/ml) SC SCH ×4 (05:15→23:38)
[2018-05-26] MEDS: METOCLOPRAMIDE HCL 5MG/ml INJ 2ml VIAL IV SCH ×3 (05:15→21:50)
[2018-05-26] MEDS: NOREPINEPHRINE 8 MG/250ML KIT 250 ML IV SCH (07:50)
[2018-05-26] MEDS: PANTOPRAZOLE 40 MG/10 ML VIAL IV SCH (09:36)
[2018-05-26] MEDS: SODIUM CHLOR 0.9% PF (SALINE LOCK) 10ML VIAL/SYR IV SCH ×2 (09:37→21:50)
[2018-05-26] MEDS: LINEZOLID 600MG/300ML 300 ML IV SCH ×2 (09:37→22:53)
[2018-05-26] MEDS: ENOXAPARIN SOD 120 MG/0.8 ML SYRINGE SC SCH ×2 (09:37→21:51)
[2018-05-26] MEDS: FLUCONAZOLE 200MG/100ML 100 ML IV SCH (09:37)
[2018-05-26] MEDS: fentaNYL Drip 2500mCg/250mlNS 250 ML IV SCH (13:32)
[2018-05-27] VITALS (103 sets, daily range): BP systolic 82–122; BP diastolic 46–91
[2018-05-27] MEDS: ALBUTEROL SULF 2.5 MG/0.5ML(0.5%) NEB SOLN NEB SCH ×4 (00:20→18:30)
[2018-05-27] MEDS: IPRATROPIUM BROM 0.5 MG/2.5ML INH SOL NEB SCH ×4 (00:20→18:30)
[2018-05-27] MEDS: NOREPINEPHRINE 8 MG/250ML KIT 250 ML IV SCH (02:24)
[2018-05-27] MEDS: PIPERACILLIN-TAZOB 3.375GM 100 ML IV SCH ×4 (03:03→21:25)
[2018-05-27] MEDS: PROPOFOL 100 ML IV SCH ×4 (03:10→17:57)
[2018-05-27] MEDS: MIDAZOLAM DRIP 50 mg/50mL 50 ML IV SCH ×5 (03:10→21:26)
[2018-05-27 04:36] LABS: BUN/Creatinine Ratio 34.2
[2018-05-27] MEDS: ACCU-CHEK COMFORT CURVE STRIP VI SCH ×3 (05:25→17:56)
[2018-05-27] MEDS: LACTULOSE 20Gm/30ML SOLN PO SCH ×3 (05:26→17:56)
[2018-05-27] MEDS: METOCLOPRAMIDE HCL 5MG/ml INJ 2ml VIAL IV SCH ×3 (05:30→22:29)
[2018-05-27] MEDS: InsuLIN REG 1unit/0.01ml Soln (100units/ml) SC SCH ×3 (05:31→17:56)
[2018-05-27] MEDS: FLUCONAZOLE 200MG/100ML 100 ML IV SCH (09:42)
[2018-05-27] MEDS: PANTOPRAZOLE 40 MG/10 ML VIAL IV SCH (09:42)
[2018-05-27] MEDS: SODIUM CHLOR 0.9% PF (SALINE LOCK) 10ML VIAL/SYR IV SCH ×2 (09:42→22:28)
[2018-05-27] MEDS: ENOXAPARIN SOD 120 MG/0.8 ML SYRINGE SC SCH ×2 (09:42→22:28)
[2018-05-27] MEDS: LINEZOLID 600MG/300ML 300 ML IV SCH ×2 (09:42→22:27)
[2018-05-27] MEDS ORDERED: SODIUM CHLORIDE 0.9 % NEB SOLN 3ML NEB ONE (10:19)
[2018-05-27] MEDS: fentaNYL Drip 2500mCg/250mlNS 250 ML IV SCH (14:30)
[2018-05-27] MEDS ORDERED: methylPREDNISolone SOD SUCC 40 MG/ML VL IV ONE (15:45)
[2018-05-27] MEDS: methylPREDNISolone SOD SUCC 40 MG/ML VL IV SCH (22:28)
[2018-05-28] VITALS (79 sets, daily range): BP systolic 99–133; BP diastolic 50–88
[2018-05-28] MEDS: MIDAZOLAM DRIP 50 mg/50mL 50 ML IV SCH ×6 (00:18→23:03)
[2018-05-28] MEDS: PROPOFOL 100 ML IV SCH ×4 (00:18→18:28)
[2018-05-28] MEDS: ACCU-CHEK COMFORT CURVE STRIP VI SCH ×5 (00:19→23:03)
[2018-05-28] MEDS: InsuLIN REG 1unit/0.01ml Soln (100units/ml) SC SCH ×5 (00:19→23:38)
[2018-05-28] MEDS: ALBUTEROL SULF 2.5 MG/0.5ML(0.5%) NEB SOLN NEB SCH ×4 (00:39→18:39)
[2018-05-28] MEDS: IPRATROPIUM BROM 0.5 MG/2.5ML INH SOL NEB SCH ×4 (00:39→18:39)
[2018-05-28] MEDS: PIPERACILLIN-TAZOB 3.375GM 100 ML IV SCH ×4 (03:53→21:01)
[2018-05-28 04:22] LABS: Hematocrit 44.2 % (41.0-53.0); Hemoglobin 14.7 g/dL (13.5-17.5); Mean Corpuscular Hemoglobin 33.3 pg (28.0-32.0); Mean Corpuscular Hgb Conc. 33.3 g/dL (32.0-36.0); Mean Corpuscular Volume 99.8 fL (80.0-100.0); Platelet Count (auto) 233 10^3/uL (140-450); Red Blood Cells 4.42 10^6/uL (4.5-5.90); Red Cell Distribution Width 14.6 % (11.8-14.3); White Blood Cell 4.8 10^3/uL (4.4-10.8)
[2018-05-28 04:26] LABS: Basophils % (manual) 0 (0.0-2.0); Blast Cells 0; Eosinophils % (manual) 0 (0-7); Myelocytes % 0; Promyelocytes % 0; Reactive Lymphocytes 0
[2018-05-28 04:37] LABS: Calcium 8.9 mg/dL (8.5-10.1)
[2018-05-28 04:39] LABS: BUN/Creatinine Ratio 36.5
[2018-05-28 04:46] LABS: Potassium 5.6 mmol/L (3.5-5.1)
[2018-05-28 04:58] LABS: Band Neutrophils % (manual) 3; Lymphocytes % (manual) 7 (10.0-50.0); Metamyelocytes % 2; Monocytes % (manual) 2 (0-12)
[2018-05-28] MEDS ORDERED: InsuLIN REG 1unit/0.01ml Soln (100units/ml) IV ONE (05:15)
[2018-05-28] MEDS ORDERED: SODIUM BICARBONATE 8.4 % INJ 50ML VIAL IV ONE (05:15)
[2018-05-28] MEDS ORDERED: SODIUM POLYSTYRENE SULF 15GM/60ML SUSP PO ONE (05:15)
[2018-05-28] MEDS ORDERED: DEXTROSE (50%) 50ML SYRG IV ONE (05:15)
[2018-05-28] MEDS ORDERED: CALCIUM GLUC 4.65meq/50ml D5AE 50 ML IV ONE (05:15)
[2018-05-28] MEDS: LACTULOSE 20Gm/30ML SOLN PO SCH ×5 (06:00→23:27)
[2018-05-28] MEDS: methylPREDNISolone SOD SUCC 40 MG/ML VL IV SCH ×3 (06:02→22:02)
[2018-05-28] MEDS: METOCLOPRAMIDE HCL 5MG/ml INJ 2ml VIAL IV SCH ×3 (06:02→22:03)
[2018-05-28] MEDS: ENOXAPARIN SOD 120 MG/0.8 ML SYRINGE SC SCH ×2 (09:47→22:02)
[2018-05-28] MEDS: FLUCONAZOLE 200MG/100ML 100 ML IV SCH (09:47)
[2018-05-28] MEDS: SODIUM CHLOR 0.9% PF (SALINE LOCK) 10ML VIAL/SYR IV SCH ×2 (09:47→21:02)
[2018-05-28] MEDS: PANTOPRAZOLE 40 MG/10 ML VIAL IV SCH (09:47)
[2018-05-28 10:19] LABS: Magnesium 2.4 mg/dL (1.6-2.6); Potassium 5.2 mmol/L (3.5-5.1)
[2018-05-28] MEDS: LINEZOLID 600MG/300ML 300 ML IV SCH ×2 (10:52→22:02)
[2018-05-28] MEDS ORDERED: MORPHINE SULFATE 4 MG/ML SYR/VIAL IV PRN (12:00)
[2018-05-28] MEDS: NOREPINEPHRINE 8 MG/250ML KIT 250 ML IV SCH ×2 (14:13→14:35)
[2018-05-28] MEDS: fentaNYL Drip 2500mCg/250mlNS 250 ML IV SCH (14:30)
[2018-05-29] VITALS (107 sets, daily range): BP systolic 94–136; BP diastolic 53–93
[2018-05-29] MEDS: IPRATROPIUM BROM 0.5 MG/2.5ML INH SOL NEB SCH ×4 (00:16→19:19)
[2018-05-29] MEDS: ALBUTEROL SULF 2.5 MG/0.5ML(0.5%) NEB SOLN NEB SCH ×4 (00:17→19:19)
[2018-05-29] MEDS: PROPOFOL 100 ML IV SCH ×5 (01:03→22:04)
[2018-05-29] MEDS: MIDAZOLAM DRIP 50 mg/50mL 50 ML IV SCH ×5 (03:05→22:04)
[2018-05-29] MEDS: PIPERACILLIN-TAZOB 3.375GM 100 ML IV SCH ×4 (03:05→21:36)
[2018-05-29 04:34] LABS: Albumin 1.9 g/dL (3.4-5.0); BUN/Creatinine Ratio 43.1; Calcium 8.9 mg/dL (8.5-10.1); Potassium 4.9 mmol/L (3.5-5.1)
[2018-05-29 04:37] LABS: Bilirubin, Total 0.8 mg/dL (0.2-1.0); Total Protein 6.9 g/dL (6.4-8.2)
[2018-05-29] MEDS: LACTULOSE 20Gm/30ML SOLN PO SCH ×4 (06:00→23:40)
[2018-05-29] MEDS: METOCLOPRAMIDE HCL 5MG/ml INJ 2ml VIAL IV SCH ×3 (06:32→21:38)
[2018-05-29] MEDS: ACCU-CHEK COMFORT CURVE STRIP VI SCH ×4 (06:33→23:40)
[2018-05-29] MEDS: methylPREDNISolone SOD SUCC 40 MG/ML VL IV SCH (06:33)
[2018-05-29] MEDS: InsuLIN REG 1unit/0.01ml Soln (100units/ml) SC SCH ×4 (06:33→23:40)
[2018-05-29] MEDS ORDERED: CARI350T22 PO (09:02)
[2018-05-29] MEDS: PANTOPRAZOLE 40 MG/10 ML VIAL IV SCH (09:03)
[2018-05-29] MEDS ORDERED: GABA300C10 PO (09:04)
[2018-05-29] MEDS: FLUCONAZOLE 200MG/100ML 100 ML IV SCH (09:04)
[2018-05-29] MEDS ORDERED: GLIP-115 PO (09:05)
[2018-05-29] MEDS ORDERED: POTA1TAB61 PO (09:06)
[2018-05-29] MEDS ORDERED: WARF5TAB71 PO (09:07)
[2018-05-29] MEDS ORDERED: COEN200C9 PO (09:08)
[2018-05-29] MEDS ORDERED: GLUCTAB8 PO (09:09)
[2018-05-29] MEDS ORDERED: MULTTAB61 PO (09:10)
[2018-05-29] MEDS: ENOXAPARIN SOD 120 MG/0.8 ML SYRINGE SC SCH ×2 (09:11→17:03)
[2018-05-29] MEDS: SODIUM CHLOR 0.9% PF (SALINE LOCK) 10ML VIAL/SYR IV SCH ×2 (09:11→21:38)
[2018-05-29] MEDS: LINEZOLID 600MG/300ML 300 ML IV SCH ×2 (11:05→21:37)
[2018-05-29] MEDS: ACETAMINOPHEN 650 mg PER 20 mL UD GT PRN (12:04)
[2018-05-29] MEDS ORDERED: POTASSIUM EFFERVESENT TAB 25 MEQ GT ONE (13:00)
[2018-05-29] MEDS ORDERED: FUROSEMIDE 20 MG/2 ML VIAL IV ONE (13:00)
[2018-05-29] MEDS: fentaNYL Drip 2500mCg/250mlNS 250 ML IV SCH (15:31)
[2018-05-30] VITALS (102 sets, daily range): BP systolic 92–145; BP diastolic 45–95
[2018-05-30] MEDS: IPRATROPIUM BROM 0.5 MG/2.5ML INH SOL NEB SCH ×4 (00:24→18:41)
[2018-05-30] MEDS: ALBUTEROL SULF 2.5 MG/0.5ML(0.5%) NEB SOLN NEB SCH ×4 (00:24→18:41)
[2018-05-30] MEDS: MIDAZOLAM DRIP 50 mg/50mL 50 ML IV SCH ×5 (02:15→22:09)
[2018-05-30] MEDS: PIPERACILLIN-TAZOB 3.375GM 100 ML IV SCH ×4 (03:08→21:10)
[2018-05-30 04:01] LABS: Basophils # (auto) 0 uL; Basophils % (auto) 0.2 % (0.0-2.0); Eosinophils # (auto) 0 uL; Hematocrit 43.9 % (41.0-53.0); Hemoglobin 14.1 g/dL (13.5-17.5); Lymphocytes # (auto) 0.6 uL; Lymphocytes % (auto) 13.2 % (10.0-50.0); Mean Corpuscular Hemoglobin 32.2 pg (28.0-32.0); Mean Corpuscular Hgb Conc. 32.2 g/dL (32.0-36.0); Mean Corpuscular Volume 100.1 fL (80.0-100.0); Monocytes # (auto) 0.5 uL; Monocytes % (auto) 11.8 % (0.0-12.0); Neutrophils # (auto) 3.4 uL; Neutrophils % (auto) 74.8 % (37.0-80.0); Nucleated Red Blood Cells % 0.2 %; Platelet Count (auto) 283 10^3/uL (140-450); Red Blood Cells 4.38 10^6/uL (4.5-5.90); Red Cell Distribution Width 14.6 % (11.8-14.3); White Blood Cell 4.6 10^3/uL (4.4-10.8)
[2018-05-30] MEDS: PROPOFOL 100 ML IV SCH ×4 (04:02→23:32)
[2018-05-30 04:18] LABS: INR 1.13 (0.9-1.15); Partial Thromboplastin Time 28.2 sec (23.78-33.04)
[2018-05-30 04:26] LABS: BUN/Creatinine Ratio 45.5; Potassium 4.2 mmol/L (3.5-5.1)
[2018-05-30] MEDS: InsuLIN REG 1unit/0.01ml Soln (100units/ml) SC SCH ×4 (06:00→23:43)
[2018-05-30] MEDS: LACTULOSE 20Gm/30ML SOLN PO SCH ×4 (06:00→23:55)
[2018-05-30] MEDS: METOCLOPRAMIDE HCL 5MG/ml INJ 2ml VIAL IV SCH ×3 (06:13→22:10)
[2018-05-30] MEDS: ACCU-CHEK COMFORT CURVE STRIP VI SCH ×4 (06:13→23:43)
[2018-05-30] MEDS: ENOXAPARIN SOD 120 MG/0.8 ML SYRINGE SC SCH ×2 (11:33→22:00)
[2018-05-30] MEDS: FLUCONAZOLE 200MG/100ML 100 ML IV SCH (11:33)
[2018-05-30] MEDS: PANTOPRAZOLE 40 MG/10 ML VIAL IV SCH (11:33)
[2018-05-30] MEDS: SODIUM CHLOR 0.9% PF (SALINE LOCK) 10ML VIAL/SYR IV SCH ×2 (11:33→22:10)
[2018-05-30] MEDS: LINEZOLID 600MG/300ML 300 ML IV SCH ×2 (12:09→22:10)
[2018-05-30] MEDS ORDERED: FUROSEMIDE 40 MG/4 ML VIAL ONE (12:39)
[2018-05-30] MEDS ORDERED: FUROSEMIDE 40 MG/4 ML VIAL IV ONE (12:45)
[2018-05-30] MEDS ORDERED: POTASSIUM EFFERVESENT TAB 25 MEQ GT ONE (12:45)
[2018-05-30] MEDS: NOREPINEPHRINE 8 MG/250ML KIT 250 ML IV SCH (14:13)
[2018-05-30] MEDS: fentaNYL Drip 2500mCg/250mlNS 250 ML IV SCH (14:30)
[2018-05-31] VITALS (108 sets, daily range): BP systolic 1–133; BP diastolic 1–93
[2018-05-31] MEDS: ALBUTEROL SULF 2.5 MG/0.5ML(0.5%) NEB SOLN NEB SCH ×4 (00:31→18:36)
[2018-05-31] MEDS: IPRATROPIUM BROM 0.5 MG/2.5ML INH SOL NEB SCH ×4 (00:31→18:36)
[2018-05-31] MEDS: MIDAZOLAM DRIP 50 mg/50mL 50 ML IV SCH ×3 (01:55→22:43)
[2018-05-31] MEDS: PIPERACILLIN-TAZOB 3.375GM 100 ML IV SCH ×4 (03:10→20:58)
[2018-05-31] MEDS: PROPOFOL 100 ML IV SCH ×3 (04:23→23:27)
[2018-05-31 04:25] LABS: INR 1.1 (0.9-1.15); Partial Thromboplastin Time 26.7 sec (23.78-33.04); Prothrombin Time 11.7 sec (9.27-12.13)
[2018-05-31 04:34] LABS: Albumin 2.1 g/dL (3.4-5.0); Potassium 3.9 mmol/L (3.5-5.1)
[2018-05-31 04:35] LABS: BUN/Creatinine Ratio 39.3
[2018-05-31 04:46] LABS: Bilirubin, Total 0.6 mg/dL (0.2-1.0); Total Protein 6.8 g/dL (6.4-8.2)
[2018-05-31] MEDS: ACCU-CHEK COMFORT CURVE STRIP VI SCH ×3 (05:34→19:44)
[2018-05-31] MEDS: InsuLIN REG 1unit/0.01ml Soln (100units/ml) SC SCH ×3 (05:35→19:44)
[2018-05-31] MEDS: LACTULOSE 20Gm/30ML SOLN PO SCH ×3 (05:35→18:00)
[2018-05-31] MEDS: METOCLOPRAMIDE HCL 5MG/ml INJ 2ml VIAL IV SCH ×3 (05:36→22:42)
[2018-05-31] MEDS: PANTOPRAZOLE 40 MG/10 ML VIAL IV SCH (09:30)
[2018-05-31] MEDS: SODIUM CHLOR 0.9% PF (SALINE LOCK) 10ML VIAL/SYR IV SCH ×2 (09:30→22:00)
[2018-05-31] MEDS: ENOXAPARIN SOD 120 MG/0.8 ML SYRINGE SC SCH ×2 (09:31→22:42)
[2018-05-31] MEDS ORDERED: FUROSEMIDE 40 MG/4 ML VIAL IV SCH (10:00)
[2018-05-31] MEDS ORDERED: POTASSIUM EFFERVESENT TAB 25 MEQ PO SCH (10:00)
[2018-05-31] MEDS ORDERED: LIDOCAINE 1% (LOCAL ANESTH.) PF 5ml SDV ONE (11:12)
[2018-05-31] MEDS: fentaNYL Drip 2500mCg/250mlNS 250 ML IV SCH ×2 (13:00→22:43)
[2018-05-31] MEDS: FLUCONAZOLE 200MG/100ML 100 ML IV SCH (13:56)
[2018-05-31] MEDS ORDERED: POTASSIUM CHL 20MEQ/100ML 100 ML IV ONE (14:00)
[2018-05-31] MEDS: NOREPINEPHRINE 8 MG/250ML KIT 250 ML IV SCH (14:13)
[2018-05-31] MEDS: LINEZOLID 600MG/300ML 300 ML IV SCH ×2 (14:48→22:42)
[2018-05-31] MEDS ORDERED: GLYCOPYRROLATE 0.2 MG/ML 1ML VIAL ONE (15:09)
[2018-05-31] MEDS ORDERED: LIDOCAINE 2% (LOCAL ANESTH.) PF 5ml SDV ONE (15:11)
[2018-05-31] MEDS ORDERED: SODIUM CHLORIDE LOCK 0 ML ONE (15:13)
[2018-05-31] MEDS ORDERED: EPINEPHrine HCL 1 MG/1 ML AMP ONE (15:13)
[2018-05-31] MEDS ORDERED: LIDOCAINE 2% JELLY 11ml (GLYDO) ONE (15:14)
[2018-05-31] MEDS: FUROSEMIDE 40 MG/4 ML VIAL IV SCH (19:43)
[2018-05-31] MEDS: POTASSIUM EFFERVESENT TAB 25 MEQ PO SCH (22:43)
[2018-06-01] VITALS (106 sets, daily range): BP systolic 82–144; BP diastolic 45–89
[2018-06-01] MEDS: ALBUTEROL SULF 2.5 MG/0.5ML(0.5%) NEB SOLN NEB SCH ×4 (00:17→18:20)
[2018-06-01] MEDS: IPRATROPIUM BROM 0.5 MG/2.5ML INH SOL NEB SCH ×4 (00:17→18:20)
[2018-06-01] MEDS: ACETYLCYSTEINE 10 %(100MG/ML) SOL 4ML NEB SCH ×4 (00:18→18:20)
[2018-06-01] MEDS: InsuLIN REG 1unit/0.01ml Soln (100units/ml) SC SCH ×4 (00:22→17:54)
[2018-06-01] MEDS: ACCU-CHEK COMFORT CURVE STRIP VI SCH ×4 (00:22→17:53)
[2018-06-01] MEDS: PIPERACILLIN-TAZOB 3.375GM 100 ML IV SCH ×4 (02:59→21:17)
[2018-06-01] MEDS: MIDAZOLAM DRIP 50 mg/50mL 50 ML IV SCH ×4 (03:12→22:37)
[2018-06-01] MEDS: PROPOFOL 100 ML IV SCH ×6 (03:46→23:11)
[2018-06-01 04:29] LABS: BUN/Creatinine Ratio 37.2; Calcium 8.7 mg/dL (8.5-10.1); Potassium 4.4 mmol/L (3.5-5.1)
[2018-06-01] MEDS: LACTULOSE 20Gm/30ML SOLN PO SCH ×4 (05:37→17:54)
[2018-06-01] MEDS: METOCLOPRAMIDE HCL 5MG/ml INJ 2ml VIAL IV SCH ×3 (05:42→22:37)
[2018-06-01] MEDS: FUROSEMIDE 40 MG/4 ML VIAL IV SCH ×2 (05:42→18:07)
[2018-06-01] MEDS: SODIUM CHLOR 0.9% PF (SALINE LOCK) 10ML VIAL/SYR IV SCH ×2 (10:00→22:00)
[2018-06-01] MEDS: PANTOPRAZOLE 40 MG/10 ML VIAL IV SCH (10:58)
[2018-06-01] MEDS: fentaNYL Drip 2500mCg/250mlNS 250 ML IV SCH ×3 (10:58→23:11)
[2018-06-01] MEDS: POTASSIUM EFFERVESENT TAB 25 MEQ PO SCH ×2 (10:58→22:38)
[2018-06-01] MEDS: ENOXAPARIN SOD 120 MG/0.8 ML SYRINGE SC SCH ×2 (10:59→22:37)
[2018-06-01] MEDS: FLUCONAZOLE 200MG/100ML 100 ML IV SCH (12:08)
[2018-06-01] MEDS ORDERED: MORPHINE SULFATE 4 MG/ML SYR/VIAL IV PRN (13:00)
[2018-06-01] MEDS: LINEZOLID 600MG/300ML 300 ML IV SCH (13:34)
[2018-06-01] MEDS: NOREPINEPHRINE 8 MG/250ML KIT 250 ML IV SCH (14:13)
[2018-06-01] MEDS ORDERED: FUROSEMIDE 20 MG/2 ML VIAL ONE (17:56)
[2018-06-01] MEDS ORDERED: DOBUTamine 1000MCG/ML 250 ML IV ONE (17:57)
[2018-06-01] MEDS ORDERED: ACETYLCYSTEINE 10 %(100MG/ML) SOL 4ML NEB SCH (18:00)
[2018-06-01] MEDS: DOBUTamine 1000MCG/ML 250 ML IV SCH (18:09)
[2018-06-01 19:11] LABS: Magnesium 2.1 mg/dL (1.6-2.6); Potassium 4.3 mmol/L (3.5-5.1)
[2018-06-02] VITALS (106 sets, daily range): BP systolic 83–141; BP diastolic 44–92
[2018-06-02] MEDS: ACCU-CHEK COMFORT CURVE STRIP VI SCH ×5 (00:01→23:40)
[2018-06-02] MEDS: IPRATROPIUM BROM 0.5 MG/2.5ML INH SOL NEB SCH ×4 (00:05→18:06)
[2018-06-02] MEDS: ACETYLCYSTEINE 10 %(100MG/ML) SOL 4ML NEB SCH ×4 (00:06→18:06)
[2018-06-02] MEDS: ALBUTEROL SULF 2.5 MG/0.5ML(0.5%) NEB SOLN NEB SCH ×4 (00:06→18:06)
[2018-06-02] MEDS: InsuLIN REG 1unit/0.01ml Soln (100units/ml) SC SCH ×4 (00:16→17:40)
[2018-06-02] MEDS: LINEZOLID 600MG/300ML 300 ML IV SCH ×2 (01:25→12:38)
[2018-06-02] MEDS: DOBUTamine 1000MCG/ML 250 ML IV SCH ×3 (01:40→16:32)
[2018-06-02] MEDS: PROPOFOL 100 ML IV SCH ×5 (03:11→23:40)
[2018-06-02] MEDS: PIPERACILLIN-TAZOB 3.375GM 100 ML IV SCH ×4 (03:32→21:42)
[2018-06-02 03:51] LABS: Basophils # (auto) 0 uL; Basophils % (auto) 0.4 % (0.0-2.0); Eosinophils # (auto) 0.7 uL; Eosinophils % (auto) 7.5 % (0.0-7.0); Hematocrit 43.9 % (41.0-53.0); Hemoglobin 14.3 g/dL (13.5-17.5); Lymphocytes # (auto) 1.2 uL; Lymphocytes % (auto) 13.6 % (10.0-50.0); Mean Corpuscular Hemoglobin 32.3 pg (28.0-32.0); Mean Corpuscular Hgb Conc. 32.7 g/dL (32.0-36.0); Mean Corpuscular Volume 98.8 fL (80.0-100.0); Monocytes # (auto) 0.4 uL; Monocytes % (auto) 4.7 % (0.0-12.0); Neutrophils # (auto) 6.5 uL; Neutrophils % (auto) 73.8 % (37.0-80.0); Nucleated Red Blood Cells % 0.2 %; Platelet Count (auto) 329 10^3/uL (140-450); Red Blood Cells 4.44 10^6/uL (4.5-5.90); Red Cell Distribution Width 15.1 % (11.8-14.3); White Blood Cell 8.8 10^3/uL (4.4-10.8)
[2018-06-02] MEDS: MIDAZOLAM DRIP 50 mg/50mL 50 ML IV SCH ×4 (04:06→20:15)
[2018-06-02 04:12] LABS: Albumin 2.1 g/dL (3.4-5.0); Calcium 8.7 mg/dL (8.5-10.1); Potassium 4.3 mmol/L (3.5-5.1)
[2018-06-02 04:21] LABS: BUN/Creatinine Ratio 30.7; Bilirubin, Total 0.8 mg/dL (0.2-1.0); Total Protein 6.7 g/dL (6.4-8.2)
[2018-06-02] MEDS: LACTULOSE 20Gm/30ML SOLN PO SCH ×2 (06:00)
[2018-06-02] MEDS: FUROSEMIDE 40 MG/4 ML VIAL IV SCH (06:04)
[2018-06-02] MEDS: METOCLOPRAMIDE HCL 5MG/ml INJ 2ml VIAL IV SCH ×3 (06:04→21:44)
[2018-06-02] MEDS: PANTOPRAZOLE 40 MG/10 ML VIAL IV SCH (09:33)
[2018-06-02] MEDS: POTASSIUM EFFERVESENT TAB 25 MEQ PO SCH ×2 (09:33→21:42)
[2018-06-02] MEDS: ENOXAPARIN SOD 120 MG/0.8 ML SYRINGE SC SCH ×2 (09:33→21:43)
[2018-06-02] MEDS: fentaNYL Drip 2500mCg/250mlNS 250 ML IV SCH ×2 (09:34→20:14)
[2018-06-02] MEDS: SODIUM CHLOR 0.9% PF (SALINE LOCK) 10ML VIAL/SYR IV SCH ×2 (09:34→22:00)
[2018-06-02] MEDS: NOREPINEPHRINE 8 MG/250ML KIT 250 ML IV SCH (10:18)
[2018-06-02] MEDS ORDERED: TPN PER PHARMACY 0 ML IV SCH (10:30)
[2018-06-02] MEDS: FLUCONAZOLE 200MG/100ML 100 ML IV SCH (11:28)
[2018-06-02 12:21] LABS: Phosphorus 3.2 mg/dL (2.5-4.90)
[2018-06-02 12:23] LABS: Magnesium 2.1 mg/dL (1.6-2.6)
[2018-06-02] MEDS: FUROSEMIDE INJECTION 250 MG in SODIUM CHL 0.9% 225 ML IV SCH (13:15)
[2018-06-02] MEDS: methylPREDNISolone SOD SUCC 125 MG/2 ML VL IV SCH ×2 (15:02→23:39)
[2018-06-02] MEDS ORDERED: TPN PER PHARMACY IV NR ×9 (20:00)
[2018-06-03] VITALS (101 sets, daily range): BP systolic 105–149; BP diastolic 54–97
[2018-06-03] MEDS: InsuLIN REG 1unit/0.01ml Soln (100units/ml) SC SCH ×5 (00:01→23:39)
[2018-06-03] MEDS: ALBUTEROL SULF 2.5 MG/0.5ML(0.5%) NEB SOLN NEB SCH ×4 (00:07→19:01)
[2018-06-03] MEDS: ACETYLCYSTEINE 10 %(100MG/ML) SOL 4ML NEB SCH ×4 (00:07→19:01)
[2018-06-03] MEDS: IPRATROPIUM BROM 0.5 MG/2.5ML INH SOL NEB SCH ×4 (00:07→19:01)
[2018-06-03] MEDS: LINEZOLID 600MG/300ML 300 ML IV SCH ×2 (00:55→14:15)
[2018-06-03] MEDS: DOBUTamine 1000MCG/ML 250 ML IV SCH ×3 (01:25→15:30)
[2018-06-03] MEDS: PIPERACILLIN-TAZOB 3.375GM 100 ML IV SCH ×4 (02:48→21:37)
[2018-06-03 04:20] LABS: Basophils # (auto) 0 uL; Basophils % (auto) 0.1 % (0.0-2.0); Eosinophils # (auto) 0 uL; Eosinophils % (auto) 0.1 % (0.0-7.0); Hematocrit 44.7 % (41.0-53.0); Hemoglobin 14.8 g/dL (13.5-17.5); Lymphocytes # (auto) 0.2 uL; Lymphocytes % (auto) 2.3 % (10.0-50.0); Mean Corpuscular Hgb Conc. 33.1 g/dL (32.0-36.0); Mean Corpuscular Volume 99.8 fL (80.0-100.0); Monocytes # (auto) 0 uL; Monocytes % (auto) 0.6 % (0.0-12.0); Neutrophils # (auto) 7.4 uL; Neutrophils % (auto) 96.9 % (37.0-80.0); Nucleated Red Blood Cells % 0.1 %; Platelet Count (auto) 325 10^3/uL (140-450); Red Blood Cells 4.49 10^6/uL (4.5-5.90); Red Cell Distribution Width 14.4 % (11.8-14.3); White Blood Cell 7.7 10^3/uL (4.4-10.8)
[2018-06-03 04:29] LABS: Albumin 2.2 g/dL (3.4-5.0); BUN/Creatinine Ratio 26.6; Calcium 8.5 mg/dL (8.5-10.1); Magnesium 2.2 mg/dL (1.6-2.6); Potassium 5.3 mmol/L (3.5-5.1)
[2018-06-03 04:32] LABS: Bilirubin, Total 0.6 mg/dL (0.2-1.0); Phosphorus 3.3 mg/dL (2.5-4.90); Total Protein 7.3 g/dL (6.4-8.2)
[2018-06-03] MEDS: fentaNYL Drip 2500mCg/250mlNS 250 ML IV SCH (06:08)
[2018-06-03] MEDS: MIDAZOLAM DRIP 50 mg/50mL 50 ML IV SCH ×2 (06:08→13:13)
[2018-06-03] MEDS: methylPREDNISolone SOD SUCC 125 MG/2 ML VL IV SCH ×3 (06:09→23:39)
[2018-06-03] MEDS: METOCLOPRAMIDE HCL 5MG/ml INJ 2ml VIAL IV SCH ×3 (06:09→21:37)
[2018-06-03] MEDS: ACCU-CHEK COMFORT CURVE STRIP VI SCH ×4 (06:15→23:34)
[2018-06-03] MEDS: PROPOFOL 100 ML IV SCH ×3 (06:15→19:49)
[2018-06-03] MEDS: SODIUM CHLOR 0.9% PF (SALINE LOCK) 10ML VIAL/SYR IV SCH ×2 (09:31→21:37)
[2018-06-03] MEDS: POTASSIUM EFFERVESENT TAB 25 MEQ PO SCH ×2 (09:42→21:16)
[2018-06-03] MEDS: ENOXAPARIN SOD 120 MG/0.8 ML SYRINGE SC SCH ×2 (09:42→21:37)
[2018-06-03] MEDS: PANTOPRAZOLE 40 MG/10 ML VIAL IV SCH (09:42)
[2018-06-03] MEDS ORDERED: DEXTROSE (50%) 50ML SYRG IV SCH (12:00)
[2018-06-03] MEDS: FLUCONAZOLE 200MG/100ML 100 ML IV SCH (13:12)
[2018-06-03] MEDS: FUROSEMIDE INJECTION 250 MG in SODIUM CHL 0.9% 225 ML IV SCH (13:35)
[2018-06-03] MEDS: NOREPINEPHRINE 8 MG/250ML KIT 250 ML IV SCH (14:15)
[2018-06-03] MEDS ORDERED: POTASSIUM CHLORIDE IV NR ×9 (20:00)
[2018-06-03] MEDS ORDERED: [UNRECOGNIZED DRUG - OTHER] IV NR ×9 (20:00)
[2018-06-03] MEDS ORDERED: SODIUM PHOSPHATES IV NR ×9 (20:00)
[2018-06-03] MEDS ORDERED: SODIUM CHLORIDE IV NR ×9 (20:00)
[2018-06-04] VITALS (62 sets, daily range): BP systolic 103–153; BP diastolic 61–105
[2018-06-04] MEDS: IPRATROPIUM BROM 0.5 MG/2.5ML INH SOL NEB SCH ×4 (00:24→18:04)
[2018-06-04] MEDS: ALBUTEROL SULF 2.5 MG/0.5ML(0.5%) NEB SOLN NEB SCH ×4 (00:24→18:04)
[2018-06-04] MEDS: ACETYLCYSTEINE 10 %(100MG/ML) SOL 4ML NEB SCH ×4 (00:24→18:04)
[2018-06-04] MEDS: LINEZOLID 600MG/300ML 300 ML IV SCH ×2 (00:35→15:15)
[2018-06-04] MEDS: DOBUTamine 1000MCG/ML 250 ML IV SCH ×3 (01:10→16:24)
[2018-06-04] MEDS: PIPERACILLIN-TAZOB 3.375GM 100 ML IV SCH ×4 (02:48→21:11)
[2018-06-04] MEDS: PROPOFOL 100 ML IV SCH ×5 (02:48→21:49)
[2018-06-04 03:48] LABS: Basophils # (auto) 0 uL; Basophils % (auto) 0.3 % (0.0-2.0); Eosinophils # (auto) 0 uL; Eosinophils % (auto) 0.1 % (0.0-7.0); Hemoglobin 14.2 g/dL (13.5-17.5); Lymphocytes # (auto) 0.3 uL; Mean Corpuscular Hemoglobin 32.7 pg (28.0-32.0); Mean Corpuscular Hgb Conc. 33.1 g/dL (32.0-36.0); Mean Corpuscular Volume 98.8 fL (80.0-100.0); Monocytes # (auto) 0.2 uL; Monocytes % (auto) 3.6 % (0.0-12.0); Neutrophils # (auto) 5.3 uL; Nucleated Red Blood Cells % 0.1 %; Platelet Count (auto) 339 10^3/uL (140-450); Red Blood Cells 4.35 10^6/uL (4.5-5.90); Red Cell Distribution Width 14.6 % (11.8-14.3); White Blood Cell 5.8 10^3/uL (4.4-10.8)
[2018-06-04 04:13] LABS: Albumin 2.1 g/dL (3.4-5.0); BUN/Creatinine Ratio 38.5; Calcium 9.1 mg/dL (8.5-10.1); Magnesium 2.2 mg/dL (1.6-2.6); Potassium 3.7 mmol/L (3.5-5.1)
[2018-06-04 04:15] LABS: Bilirubin, Total 0.5 mg/dL (0.2-1.0); Phosphorus 1.5 mg/dL (2.5-4.90); Total Protein 6.9 g/dL (6.4-8.2)
[2018-06-04] MEDS: fentaNYL Drip 2500mCg/250mlNS 250 ML IV SCH (06:06)
[2018-06-04] MEDS: ACCU-CHEK COMFORT CURVE STRIP VI SCH ×4 (06:06→23:47)
[2018-06-04] MEDS: methylPREDNISolone SOD SUCC 125 MG/2 ML VL IV SCH ×3 (06:07→23:30)
[2018-06-04] MEDS: METOCLOPRAMIDE HCL 5MG/ml INJ 2ml VIAL IV SCH ×3 (06:07→22:04)
[2018-06-04] MEDS: InsuLIN REG 1unit/0.01ml Soln (100units/ml) SC SCH ×4 (06:07→23:47)
[2018-06-04] MEDS: FUROSEMIDE INJECTION 250 MG in SODIUM CHL 0.9% 225 ML IV SCH (08:00)
[2018-06-04] MEDS: SODIUM CHLOR 0.9% PF (SALINE LOCK) 10ML VIAL/SYR IV SCH ×2 (09:45→22:04)
[2018-06-04] MEDS: ENOXAPARIN SOD 120 MG/0.8 ML SYRINGE SC SCH ×2 (10:00→22:04)
[2018-06-04] MEDS: POTASSIUM EFFERVESENT TAB 25 MEQ PO SCH ×2 (10:00→22:04)
[2018-06-04] MEDS ORDERED: SODIUM PHOSP 40 MEQ in D5W 5% 250 ML IV ONE (11:00)
[2018-06-04] MEDS: PANTOPRAZOLE 40 MG/10 ML VIAL IV SCH (11:59)
[2018-06-04] MEDS ORDERED: IOHEXOL 350 MG/ML 100ML IJ ONE (12:26)
[2018-06-04] MEDS: FLUCONAZOLE 200MG/100ML 100 ML IV SCH (13:00)
[2018-06-04] MEDS ORDERED: IOHEXOL 300 MG/ML 100ML BOTTLE IJ ONE (14:12)
[2018-06-04] MEDS: NOREPINEPHRINE 8 MG/250ML KIT 250 ML IV SCH (14:13)
[2018-06-04] MEDS: MIDAZOLAM DRIP 50 mg/50mL 50 ML IV SCH ×3 (16:24→21:50)
[2018-06-04] MEDS ORDERED: TPN PER PHARMACY IV NR ×9 (20:00)
[2018-06-04] MEDS: INSULIN LANTUS (GLARGINE) 1 /0.01ml (100units/ml) SC SCH (22:04)
[2018-06-05] VITALS (101 sets, daily range): BP systolic 92–148; BP diastolic 41–84
[2018-06-05] MEDS: ALBUTEROL SULF 2.5 MG/0.5ML(0.5%) NEB SOLN NEB SCH ×4 (00:01→18:29)
[2018-06-05] MEDS: IPRATROPIUM BROM 0.5 MG/2.5ML INH SOL NEB SCH ×5 (00:01→23:28)
[2018-06-05] MEDS: ACETYLCYSTEINE 10 %(100MG/ML) SOL 4ML NEB SCH ×4 (00:01→18:29)
[2018-06-05] MEDS: DOBUTamine 1000MCG/ML 250 ML IV SCH ×3 (00:55→16:45)
[2018-06-05] MEDS: LINEZOLID 600MG/300ML 300 ML IV SCH ×2 (01:14→13:36)
[2018-06-05] MEDS: PROPOFOL 100 ML IV SCH ×5 (01:14→23:29)
[2018-06-05] MEDS: MIDAZOLAM DRIP 50 mg/50mL 50 ML IV SCH ×3 (02:49→20:08)
[2018-06-05] MEDS: PIPERACILLIN-TAZOB 3.375GM 100 ML IV SCH ×4 (04:00→21:10)
[2018-06-05 04:03] LABS: Basophils # (auto) 0 uL; Basophils % (auto) 0.2 % (0.0-2.0); Eosinophils # (auto) 0 uL; Hematocrit 39.3 % (41.0-53.0); Lymphocytes # (auto) 0.3 uL; Lymphocytes % (auto) 5.7 % (10.0-50.0); Mean Corpuscular Hemoglobin 32.5 pg (28.0-32.0); Mean Corpuscular Hgb Conc. 33.1 g/dL (32.0-36.0); Mean Corpuscular Volume 98.2 fL (80.0-100.0); Monocytes # (auto) 0.2 uL; Monocytes % (auto) 4.8 % (0.0-12.0); Neutrophils % (auto) 89.3 % (37.0-80.0); Nucleated Red Blood Cells % 0.1 %; Platelet Count (auto) 318 10^3/uL (140-450); Red Cell Distribution Width 14.5 % (11.8-14.3); White Blood Cell 4.5 10^3/uL (4.4-10.8)
[2018-06-05 04:24] LABS: Albumin 1.8 g/dL (3.4-5.0); Calcium 7.4 mg/dL (8.5-10.1); Magnesium 1.8 mg/dL (1.6-2.6)
[2018-06-05 04:26] LABS: BUN/Creatinine Ratio 48.2
[2018-06-05 04:29] LABS: Bilirubin, Total 0.4 mg/dL (0.2-1.0); Phosphorus 1.8 mg/dL (2.5-4.90); Total Protein 5.7 g/dL (6.4-8.2)
[2018-06-05] MEDS: InsuLIN REG 1unit/0.01ml Soln (100units/ml) SC SCH ×3 (06:19→18:38)
[2018-06-05] MEDS: METOCLOPRAMIDE HCL 5MG/ml INJ 2ml VIAL IV SCH ×3 (06:19→21:36)
[2018-06-05] MEDS: ACCU-CHEK COMFORT CURVE STRIP VI SCH ×3 (06:19→18:29)
[2018-06-05] MEDS: methylPREDNISolone SOD SUCC 125 MG/2 ML VL IV SCH ×3 (06:35→23:28)
[2018-06-05] MEDS ORDERED: POTASSIUM PHOSPHATE 44 MEQ in D5W 5% 250 ML IV ONE (09:00)
[2018-06-05] MEDS ORDERED: INSULIN LANTUS (GLARGINE) 1 /0.01ml (100units/ml) SC SCH (10:00)
[2018-06-05] MEDS: SODIUM CHLOR 0.9% PF (SALINE LOCK) 10ML VIAL/SYR IV SCH ×2 (10:00→21:37)
[2018-06-05] MEDS: POTASSIUM EFFERVESENT TAB 25 MEQ PO SCH ×2 (10:23→21:36)
[2018-06-05] MEDS: PANTOPRAZOLE 40 MG/10 ML VIAL IV SCH (10:23)
[2018-06-05] MEDS: ENOXAPARIN SOD 120 MG/0.8 ML SYRINGE SC SCH ×2 (10:24→21:37)
[2018-06-05] MEDS: FLUCONAZOLE 200MG/100ML 100 ML IV SCH (12:09)
[2018-06-05] MEDS: NOREPINEPHRINE 8 MG/250ML KIT 250 ML IV SCH (14:13)
[2018-06-05] MEDS ORDERED: Glucerna 1.2 Cal 1Liter BOTTLE GT SCH (15:30)
[2018-06-05] MEDS: FUROSEMIDE INJECTION 250 MG in SODIUM CHL 0.9% 225 ML IV SCH (16:08)
[2018-06-05] MEDS: fentaNYL Drip 2500mCg/250mlNS 250 ML IV SCH (18:00)
[2018-06-05] MEDS ORDERED: TPN PER PHARMACY IV NR ×8 (20:00)
[2018-06-05] MEDS: INSULIN LANTUS (GLARGINE) 1 /0.01ml (100units/ml) SC SCH (21:36)
[2018-06-06] VITALS (106 sets, daily range): BP systolic 102–139; BP diastolic 56–92
[2018-06-06] MEDS: ALBUTEROL SULF 2.5 MG/0.5ML(0.5%) NEB SOLN NEB SCH ×4 (00:14→18:10)
[2018-06-06] MEDS: ACETYLCYSTEINE 10 %(100MG/ML) SOL 4ML NEB SCH ×4 (00:14→18:10)
[2018-06-06] MEDS: InsuLIN REG 1unit/0.01ml Soln (100units/ml) SC SCH ×4 (00:15→18:30)
[2018-06-06] MEDS: IPRATROPIUM BROM 0.5 MG/2.5ML INH SOL NEB SCH ×4 (00:15→18:10)
[2018-06-06] MEDS: DOBUTamine 1000MCG/ML 250 ML IV SCH ×3 (00:40→16:30)
[2018-06-06] MEDS: LINEZOLID 600MG/300ML 300 ML IV SCH ×2 (01:31→13:21)
[2018-06-06] MEDS: PROPOFOL 100 ML IV SCH ×7 (02:30→22:50)
[2018-06-06 03:49] LABS: Hematocrit 42.5 % (41.0-53.0); Mean Corpuscular Hemoglobin 32.5 pg (28.0-32.0); Mean Corpuscular Hgb Conc. 32.8 g/dL (32.0-36.0); Platelet Count (auto) 312 10^3/uL (140-450); Red Blood Cells 4.29 10^6/uL (4.5-5.90); Red Cell Distribution Width 14.6 % (11.8-14.3); White Blood Cell 6.1 10^3/uL (4.4-10.8)
[2018-06-06 03:55] LABS: Basophils % (manual) 0 (0.0-2.0); Blast Cells 0; Eosinophils % (manual) 0 (0-7); Metamyelocytes % 0; Myelocytes % 0; Promyelocytes % 0; Reactive Lymphocytes 0
[2018-06-06] MEDS: PIPERACILLIN-TAZOB 3.375GM 100 ML IV SCH ×4 (04:04→21:05)
[2018-06-06 04:10] LABS: Albumin 2.2 g/dL (3.4-5.0); Calcium 8.7 mg/dL (8.5-10.1); Magnesium 2.3 mg/dL (1.6-2.6); Potassium 4.2 mmol/L (3.5-5.1)
[2018-06-06] MEDS: fentaNYL Drip 2500mCg/250mlNS 250 ML IV SCH ×2 (04:14→16:19)
[2018-06-06 04:15] LABS: BUN/Creatinine Ratio 46.4; Bilirubin, Total 0.8 mg/dL (0.2-1.0); Phosphorus 3.7 mg/dL (2.5-4.90); Total Protein 6.4 g/dL (6.4-8.2)
[2018-06-06 04:35] LABS: Band Neutrophils % (manual) 2; Lymphocytes % (manual) 2 (10.0-50.0); Monocytes % (manual) 2 (0-12)
[2018-06-06] MEDS: ACCU-CHEK COMFORT CURVE STRIP VI SCH ×4 (05:31→18:01)
[2018-06-06] MEDS: METOCLOPRAMIDE HCL 5MG/ml INJ 2ml VIAL IV SCH ×3 (05:31→21:54)
[2018-06-06] MEDS: methylPREDNISolone SOD SUCC 125 MG/2 ML VL IV SCH (06:30)
[2018-06-06] MEDS: PANTOPRAZOLE 40 MG/10 ML VIAL IV SCH (08:18)
[2018-06-06] MEDS: MIDAZOLAM DRIP 50 mg/50mL 50 ML IV SCH ×2 (08:18→10:34)
[2018-06-06] MEDS: SODIUM CHLOR 0.9% PF (SALINE LOCK) 10ML VIAL/SYR IV SCH ×2 (08:19→21:55)
[2018-06-06] MEDS: POTASSIUM EFFERVESENT TAB 25 MEQ PO SCH ×2 (08:19→21:55)
[2018-06-06] MEDS: ENOXAPARIN SOD 120 MG/0.8 ML SYRINGE SC SCH ×2 (08:20→21:54)
[2018-06-06] MEDS: INSULIN LANTUS (GLARGINE) 1 /0.01ml (100units/ml) SC SCH ×2 (10:11→21:54)
[2018-06-06] MEDS: FLUCONAZOLE 200MG/100ML 100 ML IV SCH (11:56)
[2018-06-06] MEDS: NOREPINEPHRINE 8 MG/250ML KIT 250 ML IV SCH (14:13)
[2018-06-06] MEDS: FUROSEMIDE INJECTION 250 MG in SODIUM CHL 0.9% 225 ML IV SCH (16:28)
[2018-06-06] MEDS: methylPREDNISolone SOD SUCC 40 MG/ML VL IV SCH ×2 (18:09→21:54)
[2018-06-06] MEDS ORDERED: TPN PER PHARMACY IV NR ×8 (20:00)
[2018-06-07] VITALS (101 sets, daily range): BP systolic 80–121; BP diastolic 50–84
[2018-06-07] MEDS: ACCU-CHEK COMFORT CURVE STRIP VI SCH ×5 (00:07→23:56)
[2018-06-07] MEDS: IPRATROPIUM BROM 0.5 MG/2.5ML INH SOL NEB SCH ×4 (00:08→18:24)
[2018-06-07] MEDS: InsuLIN REG 1unit/0.01ml Soln (100units/ml) SC SCH ×4 (00:08→18:13)
[2018-06-07] MEDS: ALBUTEROL SULF 2.5 MG/0.5ML(0.5%) NEB SOLN NEB SCH ×4 (00:08→18:24)
[2018-06-07] MEDS: ACETYLCYSTEINE 10 %(100MG/ML) SOL 4ML NEB SCH ×4 (00:08→18:24)
[2018-06-07] MEDS: DOBUTamine 1000MCG/ML 250 ML IV SCH (00:25)
[2018-06-07] MEDS: LINEZOLID 600MG/300ML 300 ML IV SCH ×2 (00:51→12:56)
[2018-06-07] MEDS: PROPOFOL 100 ML IV SCH ×7 (01:52→23:19)
[2018-06-07] MEDS: PIPERACILLIN-TAZOB 3.375GM 100 ML IV SCH ×4 (02:59→20:45)
[2018-06-07] MEDS: fentaNYL Drip 2500mCg/250mlNS 250 ML IV SCH ×2 (03:03→14:51)
[2018-06-07] MEDS: MIDAZOLAM DRIP 50 mg/50mL 50 ML IV SCH ×4 (03:37→23:11)
[2018-06-07 04:22] LABS: Hemoglobin 13.5 g/dL (13.5-17.5); Mean Corpuscular Hemoglobin 32.8 pg (28.0-32.0); Mean Corpuscular Hgb Conc. 32.9 g/dL (32.0-36.0); Mean Corpuscular Volume 99.7 fL (80.0-100.0); Platelet Count (auto) 292 10^3/uL (140-450); Red Blood Cells 4.11 10^6/uL (4.5-5.90); Red Cell Distribution Width 14.8 % (11.8-14.3); White Blood Cell 8.4 10^3/uL (4.4-10.8)
[2018-06-07 04:34] LABS: Basophils % (manual) 0 (0.0-2.0); Blast Cells 0; Eosinophils % (manual) 0 (0-7); Metamyelocytes % 0; Myelocytes % 0; Promyelocytes % 0; Reactive Lymphocytes 0
[2018-06-07 04:41] LABS: Albumin 2.2 g/dL (3.4-5.0); Calcium 9.1 mg/dL (8.5-10.1); Potassium 4.9 mmol/L (3.5-5.1)
[2018-06-07 04:42] LABS: Magnesium 2.6 mg/dL (1.6-2.6); Phosphorus 4.4 mg/dL (2.5-4.90)
[2018-06-07 04:44] LABS: BUN/Creatinine Ratio 60.6; Bilirubin, Total 0.6 mg/dL (0.2-1.0); Total Protein 6.4 g/dL (6.4-8.2)
[2018-06-07 05:30] LABS: Band Neutrophils % (manual) 2; Lymphocytes % (manual) 4 (10.0-50.0); Monocytes % (manual) 4 (0-12)
[2018-06-07] MEDS: METOCLOPRAMIDE HCL 5MG/ml INJ 2ml VIAL IV SCH ×3 (06:22→22:00)
[2018-06-07] MEDS: PANTOPRAZOLE 40 MG/10 ML VIAL IV SCH (09:42)
[2018-06-07] MEDS: methylPREDNISolone SOD SUCC 40 MG/ML VL IV SCH ×2 (09:44→22:33)
[2018-06-07] MEDS: INSULIN LANTUS (GLARGINE) 1 /0.01ml (100units/ml) SC SCH ×2 (09:51→22:00)
[2018-06-07] MEDS: SODIUM CHLOR 0.9% PF (SALINE LOCK) 10ML VIAL/SYR IV SCH ×2 (09:54→22:00)
[2018-06-07] MEDS: POTASSIUM EFFERVESENT TAB 25 MEQ PO SCH ×2 (09:54→22:34)
[2018-06-07] MEDS: ENOXAPARIN SOD 120 MG/0.8 ML SYRINGE SC SCH ×2 (10:00→22:34)
[2018-06-07 10:43] LABS: INR 1.03 (0.9-1.15)
[2018-06-07] MEDS ORDERED: LIDOCAINE 2%HCL (LOCAL ANESTH.) INJ 20ML MDV ONE (11:32)
[2018-06-07] MEDS ORDERED: IOHEXOL 350 MG/ML 100ML IJ ONE ×2 (11:32→12:27)
[2018-06-07] MEDS: FLUCONAZOLE 200MG/100ML 100 ML IV SCH (11:38)
[2018-06-07] MEDS ORDERED: SODIUM CHL 0.9% 0 ML ONE (12:14)
[2018-06-07] MEDS ORDERED: ANGIOMAX 250 MG VIAL IV ONE (12:14)
[2018-06-07] MEDS ORDERED: MICAFUNGIN SODIUM 100 MG in SODIUM CHL 0.9% 100 ML IV ONE (12:45)
[2018-06-07] MEDS: FUROSEMIDE INJECTION 250 MG in SODIUM CHL 0.9% 225 ML IV SCH (13:30)
[2018-06-07] MEDS: NOREPINEPHRINE 8 MG/250ML KIT 250 ML IV SCH (14:13)
[2018-06-07] MEDS: ACETAMINOPHEN 650 mg PER 20 mL UD GT PRN (16:29)
[2018-06-07] MEDS ORDERED: TPN PER PHARMACY IV NR ×7 (20:00)
[2018-06-08] VITALS (105 sets, daily range): BP systolic 84–117; BP diastolic 48–78
[2018-06-08] MEDS: ALBUTEROL SULF 2.5 MG/0.5ML(0.5%) NEB SOLN NEB SCH ×4 (00:05→19:48)
[2018-06-08] MEDS: IPRATROPIUM BROM 0.5 MG/2.5ML INH SOL NEB SCH ×4 (00:06→19:48)
[2018-06-08] MEDS: ACETYLCYSTEINE 10 %(100MG/ML) SOL 4ML NEB SCH ×4 (00:06→19:48)
[2018-06-08] MEDS: InsuLIN REG 1unit/0.01ml Soln (100units/ml) SC SCH ×4 (00:06→17:29)
[2018-06-08] MEDS: LINEZOLID 600MG/300ML 300 ML IV SCH ×2 (00:39→12:48)
[2018-06-08 04:03] LABS: Hematocrit 40.6 % (41.0-53.0); Mean Corpuscular Hgb Conc. 31.9 g/dL (32.0-36.0); Mean Corpuscular Volume 100.2 fL (80.0-100.0); Platelet Count (auto) 248 10^3/uL (140-450); Red Blood Cells 4.06 10^6/uL (4.5-5.90); Red Cell Distribution Width 14.6 % (11.8-14.3); White Blood Cell 9.7 10^3/uL (4.4-10.8)
[2018-06-08 04:14] LABS: Band Neutrophils % (manual) 0; Basophils % (manual) 0 (0.0-2.0); Blast Cells 0; Eosinophils % (manual) 0 (0-7); Metamyelocytes % 0; Myelocytes % 0; Promyelocytes % 0; Reactive Lymphocytes 0
[2018-06-08 04:22] LABS: Magnesium 2.7 mg/dL (1.6-2.6); Phosphorus 4.2 mg/dL (2.5-4.90)
[2018-06-08 04:37] LABS: Albumin 2.2 g/dL (3.4-5.0); Calcium 9.2 mg/dL (8.5-10.1); Potassium 5.5 mmol/L (3.5-5.1)
[2018-06-08 04:41] LABS: BUN/Creatinine Ratio 74.1; Bilirubin, Total 0.9 mg/dL (0.2-1.0); Total Protein 6.2 g/dL (6.4-8.2)
[2018-06-08 05:04] LABS: Lymphocytes % (manual) 2 (10.0-50.0); Monocytes % (manual) 5 (0-12)
[2018-06-08] MEDS: fentaNYL Drip 2500mCg/250mlNS 250 ML IV SCH ×2 (05:19→17:30)
[2018-06-08] MEDS: PIPERACILLIN-TAZOB 3.375GM 100 ML IV SCH ×4 (05:23→20:46)
[2018-06-08] MEDS: METOCLOPRAMIDE HCL 5MG/ml INJ 2ml VIAL IV SCH ×3 (06:00→22:26)
[2018-06-08] MEDS: ACCU-CHEK COMFORT CURVE STRIP VI SCH ×3 (06:03→17:30)
[2018-06-08] MEDS: PROPOFOL 100 ML IV SCH ×4 (08:18→20:58)
[2018-06-08] MEDS: MIDAZOLAM DRIP 50 mg/50mL 50 ML IV SCH ×2 (08:18→17:20)
[2018-06-08] MEDS: SODIUM CHLOR 0.9% PF (SALINE LOCK) 10ML VIAL/SYR IV SCH ×2 (10:00→22:28)
[2018-06-08] MEDS: ENOXAPARIN SOD 120 MG/0.8 ML SYRINGE SC SCH ×2 (10:00→22:28)
[2018-06-08] MEDS: POTASSIUM EFFERVESENT TAB 25 MEQ PO SCH ×2 (10:00→22:00)
[2018-06-08] MEDS: PANTOPRAZOLE 40 MG/10 ML VIAL IV SCH (10:39)
[2018-06-08] MEDS: methylPREDNISolone SOD SUCC 40 MG/ML VL IV SCH (10:39)
[2018-06-08] MEDS: INSULIN LANTUS (GLARGINE) 1 /0.01ml (100units/ml) SC SCH ×2 (10:41→22:28)
[2018-06-08] MEDS: MICAFUNGIN SODIUM 100 MG in SODIUM CHL 0.9% 100 ML IV SCH (10:41)
[2018-06-08] MEDS: NOREPINEPHRINE 8 MG/250ML KIT 250 ML IV SCH (14:13)
[2018-06-08] MEDS ORDERED: MORPHINE SULFATE 4 MG/ML SYR/VIAL IV PRN (15:30)
[2018-06-08] MEDS: SODIUM CHLORIDE 0.9% 1,000 ML IV SCH (17:21)
[2018-06-08] MEDS: SILDENAFIL CITRATE 20 MG TAB PO SCH ×2 (17:21→20:46)
[2018-06-08] MEDS ORDERED: TPN PER PHARMACY IV NR ×7 (20:00)
[2018-06-08] MEDS: NYSTATIN (MOUTH-THROAT) 500,000 UNITS/5 ML SUSP MT SCH (22:26)
[2018-06-09] VITALS (92 sets, daily range): BP systolic 64–121; BP diastolic 31–80
[2018-06-09] MEDS: ACCU-CHEK COMFORT CURVE STRIP VI SCH ×4 (00:22→17:54)
[2018-06-09] MEDS: InsuLIN REG 1unit/0.01ml Soln (100units/ml) SC SCH ×4 (00:27→17:54)
[2018-06-09] MEDS: ACETYLCYSTEINE 10 %(100MG/ML) SOL 4ML NEB SCH ×4 (00:50→18:52)
[2018-06-09] MEDS: IPRATROPIUM BROM 0.5 MG/2.5ML INH SOL NEB SCH ×4 (00:50→18:51)
[2018-06-09] MEDS: ALBUTEROL SULF 2.5 MG/0.5ML(0.5%) NEB SOLN NEB SCH ×4 (00:50→18:52)
[2018-06-09] MEDS: LINEZOLID 600MG/300ML 300 ML IV SCH ×2 (00:57→12:57)
[2018-06-09] MEDS: PROPOFOL 100 ML IV SCH ×4 (01:34→13:42)
[2018-06-09] MEDS: PIPERACILLIN-TAZOB 3.375GM 100 ML IV SCH ×3 (03:09→15:11)
[2018-06-09 04:03] LABS: Albumin 2.2 g/dL (3.4-5.0); BUN/Creatinine Ratio 81.9; Calcium 9.3 mg/dL (8.5-10.1); Magnesium 2.5 mg/dL (1.6-2.6); Potassium 5.3 mmol/L (3.5-5.1)
[2018-06-09 04:06] LABS: Bilirubin, Total 1.3 mg/dL (0.2-1.0); Phosphorus 3.8 mg/dL (2.5-4.90); Total Protein 6.1 g/dL (6.4-8.2)
[2018-06-09] MEDS: MIDAZOLAM DRIP 50 mg/50mL 50 ML IV SCH ×2 (04:38→09:32)
[2018-06-09] MEDS: SODIUM CHLORIDE 0.9% 1,000 ML IV SCH ×2 (04:50→19:15)
[2018-06-09] MEDS: NYSTATIN (MOUTH-THROAT) 500,000 UNITS/5 ML SUSP MT SCH ×3 (06:06→17:38)
[2018-06-09] MEDS: METOCLOPRAMIDE HCL 5MG/ml INJ 2ml VIAL IV SCH ×2 (06:06→13:41)
[2018-06-09 08:02] LABS: Hematocrit 38.9 % (41.0-53.0); Hemoglobin 12.5 g/dL (13.5-17.5); Mean Corpuscular Hemoglobin 32.1 pg (28.0-32.0); Mean Corpuscular Hgb Conc. 32.1 g/dL (32.0-36.0); Platelet Count (auto) 217 10^3/uL (140-450); Red Blood Cells 3.89 10^6/uL (4.5-5.90); Red Cell Distribution Width 14.5 % (11.8-14.3); White Blood Cell 13.6 10^3/uL (4.4-10.8)
[2018-06-09] MEDS: SILDENAFIL CITRATE 20 MG TAB PO SCH ×2 (08:05→13:41)
[2018-06-09] MEDS: fentaNYL Drip 2500mCg/250mlNS 250 ML IV SCH (08:06)
[2018-06-09 08:18] LABS: Basophils % (manual) 0 (0.0-2.0); Blast Cells 0; Eosinophils % (manual) 0 (0-7); Metamyelocytes % 0; Myelocytes % 0; Promyelocytes % 0; Reactive Lymphocytes 0
[2018-06-09] MEDS: PANTOPRAZOLE 40 MG/10 ML VIAL IV SCH (09:31)
[2018-06-09] MEDS: ENOXAPARIN SOD 120 MG/0.8 ML SYRINGE SC SCH (09:33)
[2018-06-09] MEDS: INSULIN LANTUS (GLARGINE) 1 /0.01ml (100units/ml) SC SCH (09:33)
[2018-06-09 09:36] LABS: Band Neutrophils % (manual) 1; Lymphocytes % (manual) 2 (10.0-50.0); Monocytes % (manual) 4 (0-12)
[2018-06-09] MEDS: SODIUM CHLOR 0.9% PF (SALINE LOCK) 10ML VIAL/SYR IV SCH (09:55)
[2018-06-09] MEDS: POTASSIUM EFFERVESENT TAB 25 MEQ PO SCH (09:55)
[2018-06-09] MEDS: MICAFUNGIN SODIUM 100 MG in SODIUM CHL 0.9% 100 ML IV SCH (11:14)
[2018-06-09] MEDS: NOREPINEPHRINE 8 MG/250ML KIT 250 ML IV SCH (12:15)
[2018-06-09] MEDS ORDERED: SODIUM BICARBONATE 8.4 % INJ 50ML VIAL IV ONE ×3 (19:18→20:45)
[2018-06-09] MEDS ORDERED: PHENYLEPHRINE IV 250 ML IV ONE (19:24)
[2018-06-09] MEDS ORDERED: ATROPINE SULF 1 MG/10ml SYR ONE (19:58)
[2018-06-09] MEDS ORDERED: TPN PER PHARMACY IV NR ×5 (20:00)
[2018-06-09] MEDS ORDERED: EPINEPHrine HCL 1 MG/10 ML SYRG ONE (20:03)
[2018-06-09] MEDS ORDERED: ATROPINE SULF 1 MG/10ml SYR IV ONE (20:45)
[2018-06-09] MEDS ORDERED: PHENYLEPHRINE INJ 20 MG in D5W 5% 250 ML IV SCH (20:45)
[2018-06-09] MEDS ORDERED: EPINEPHrine HCL 1 MG/10 ML SYRG IV ONE (20:45)
[2018-06-10] MEDS ORDERED: ATROPINE SULF 1 MG/10ml SYR IV ONE (01:07)
[2018-06-10] MEDS ORDERED: DOPamine 1600mCg/ml 400MG/250ml NSorD5 KIT/BAG IV ONE (01:07)
[2018-06-10] MEDS ORDERED: SODIUM BICARBONATE 8.4% INJ 50ML SYRINGE IV ONE (01:07)
[2018-06-10] MEDS ORDERED: EPINEPHrine HCL 1 MG/10 ML SYRG IV ONE (01:07)
== END 2018-06-10 01:08 | disposition expired | DRG 870 ==
LOC: ER 12:56 → OVERFLOW 12:57 → ICU WEST 19:43
PROVIDERS: ADMIT Internal Medicine; ATTEND Internal Medicine
PROC: 5A1955Z Respiratory Ventilation, Greater than 96 Consecutive Hours (ICD-10-PCS; 2018-05-15)
PROC: 5A09357 Assistance with Respiratory Ventilation, Less than 24 Consecutive Hours, Continuous Positive Airway Pressure (ICD-10-PCS; 2018-05-15)
PROC: 0BH17EZ Insertion of Endotracheal Airway into Trachea, Via Natural or Artificial Opening (ICD-10-PCS; 2018-05-15)
PROC: 0BC88ZZ Extirpation of Matter from Left Upper Lobe Bronchus, Via Natural or Artificial Opening Endoscopic (ICD-10-PCS; 2018-05-31)
PROC: 4A023N8 Measurement of Cardiac Sampling and Pressure, Bilateral, Percutaneous Approach (ICD-10-PCS; 2018-06-07)
PROC: B2111ZZ Fluoroscopy of Multiple Coronary Arteries using Low Osmolar Contrast (ICD-10-PCS; 2018-06-07)
PROC: B2151ZZ Fluoroscopy of Left Heart using Low Osmolar Contrast (ICD-10-PCS; 2018-06-07)
PROC: B245ZZ4 Ultrasonography of Left Heart, Transesophageal (ICD-10-PCS; principal; 2018-06-09)
PROC: 5A12012 Performance of Cardiac Output, Single, Manual (ICD-10-PCS; 2018-06-09)
PROC: 02H633Z Insertion of Infusion Device into Right Atrium, Percutaneous Approach (ICD-10-PCS; 2018-06-09)
PROC: 02HV33Z Insertion of Infusion Device into Superior Vena Cava, Percutaneous Approach (ICD-10-PCS; 2018-06-09)
DX: A41.9 Sepsis, unspecified organism (principal); J96.22 Acute and chronic respiratory failure with hypercapnia; I50.43 Acute on chronic combined systolic (congestive) and diastolic (congestive) heart failure; J18.0 Bronchopneumonia, unspecified organism; J96.21 Acute and chronic respiratory failure with hypoxia; N17.0 Acute kidney failure with tubular necrosis; R65.21 Severe sepsis with septic shock; J44.1 Chronic obstructive pulmonary disease with (acute) exacerbation; I13.0 Hypertensive heart and chronic kidney disease with heart failure and stage 1 through stage 4 chronic kidney disease, or unspecified chronic kidney disease; J44.0 Chronic obstructive pulmonary disease with (acute) lower respiratory infection; I42.9 Cardiomyopathy, unspecified; E66.01 Morbid (severe) obesity due to excess calories; N18.3 Chronic kidney disease, stage 3 (moderate); E11.22 Type 2 diabetes mellitus with diabetic chronic kidney disease; I27.20 Pulmonary hypertension, unspecified; F17.200 Nicotine dependence, unspecified, uncomplicated; Z68.32 Body mass index [BMI] 32.0-32.9, adult; Z86.711 Personal history of pulmonary embolism
CPT/HCPCS: 31500; 36415; 36600; 71045; 71250; 71275; 74018; 76775; 80048; 80053; 80202; 80307; 81001; 82040; 82805; 82962; 83036; 83605; 83735; 83880; 84100; 84132; 84478; 84484; 85007; 85014; 85018; 85025; 85027; 85610; 85730; 87040; 87070; 87081; 87086; 87205; 92950; 93005; 93306; 93312; 93970; 94002; 94003; 94640; 94667; 94668; 96365; 96372; 96375; 99152; 99291; A4618; A6257; C9113; J0171; J0330; J0610; J0696; J1450; J1815; J2001; J2248; J2250; J2543; J2704; J3480; J7060; J7131; Q9956